=== PATIENT | male | born 1945 | race American Indian/Alaskan Native ===

== ENCOUNTER 2020-08-24 09:31 | Emergency (ER) | payer MEDICARE, SELFPAY ==
[2020-08-24] MEDS ORDERED: DIPHtheria,PERTUSSIS(ACELL),TETANUS VACCINE/PF 0.5 ML VIAL IM ONE (12:14)
--- NOTE | 2020-08-24 12:18 | Emergency Department Report ---
ED General Adult HPI - General Chief complaint: Extremity Injury, Lower Stated complaint: FOOT INJURY Time Seen by Provider: 08/24/20 12:13 Source: patient Mode of arrival: Ambulatory Limitations: No Limitations - History of Present Illness Initial comments: 74-year-old -Malag[place] male patient presents with complaints of left foot and lower leg swelling x yesterday. Patient states symptoms began after he stepped on a nail that went through his rubber boot. He is unsure of his last tetanus vaccination. He states there was severe pain initially, however states that the pain is now mild and feels more like a tightness. He denies any fever/chills/sweats or prior medical history. Blood pressure noted to be significantly elevated-patient denies any prior diagnosis of hypertension. He also denies any history of DVT/PE, cough, shortness of breath, recent long travel/surgeries, hemoptysis, or history of cancer. Severity scale (0 -10): 7 - Related Data Previous Rx's Medication Instructions Recorded Last Taken Type Cyclobenzaprine [Flexeril] 10 mg PO TID PRN #15 tablet 12/07/13 Unknown Rx Prednisone [predniSONE 5 mg (6-Day 5 mg PO .TAPER #1 tab.ds.pk 12/07/13 Unknown Rx Pack, 21 Tabs)] traMADoL [Ultram] 50 mg PO Q4HR PRN #15 tablet 12/07/13 Unknown Rx Ciprofloxacin HCl [Ciprofloxacin 750 mg PO BID 7 Days #14 tablet 08/24/20 Unknown Rx TAB] Clindamycin [Clindamycin CAP] 300 mg PO Q6H 10 Days #40 cap 08/24/20 Unknown Rx Allergies Allergy/AdvReac Type Severity Reaction Status Date / Time No Known Allergies Allergy Unverified 12/07/13 03:13 ED Review of Systems ROS: Stated complaint: FOOT INJURY Other details as noted in HPI Constitutional: denies: chills, fever, malaise, weakness Respiratory: denies: cough, shortness of breath Cardiovascular: denies: chest pain Endocrine: denies: excessive sweating Gastrointestinal: denies: abdominal pain, nausea, vomiting Skin: denies: rash, lesions, change in color ED Past Medical Hx - Past Medical History Previous Medical History?: No - Surgical History Past Surgical History?: No - Social History Smoking Status: Never Smoker Substance Use Type: None - Medications Home Medications: Home Medications Medication Instructions Recorded Confirmed Last Taken Type Cyclobenzaprine [Flexeril] 10 mg PO TID PRN #15 tablet 12/07/13 Unknown Rx Prednisone [predniSONE 5 mg (6-Day 5 mg PO .TAPER #1 tab.ds.pk 12/07/13 Unknown Rx Pack, 21 Tabs)] traMADoL [Ultram] 50 mg PO Q4HR PRN #15 tablet 12/07/13 Unknown Rx Ciprofloxacin HCl [Ciprofloxacin 750 mg PO BID 7 Days #14 tablet 08/24/20 Unknown Rx TAB] Clindamycin [Clindamycin CAP] 300 mg PO Q6H 10 Days #40 cap 08/24/20 Unknown Rx ED Physical Exam - General Limitations: No Limitations General appearance: alert, in no apparent distress - Head Head exam: Present: atraumatic, normocephalic - Eye Eye exam: Present: normal appearance. Absent: scleral icterus - Neck Neck exam: Present: normal inspection - Respiratory Respiratory exam: Present: normal lung sounds bilaterally. Absent: respiratory distress - Cardiovascular Cardiovascular Exam: Present: regular rate, normal rhythm. Absent: systolic murmur, diastolic murmur, rubs, gallop - Expanded Lower Extremity Exam Left Lower Leg exam: Present: full ROM, swelling (Pitting edema). Absent: ecchymosis, erythema Ankle exam: Present: full ROM, swelling (Pitting edema) Foot/Toe exam: Present: swelling. Absent: laceration, ecchymosis, deformity, erythema, puncture wound, foreign body Neuro vascular tendon exam: Absent: no vascular compromise, pulse deficit Gait: Positive: observed and normal - Neurological Exam Neurological exam: Present: alert, oriented X3, normal gait - Psychiatric Psychiatric exam: Present: normal affect, normal mood - Skin Skin exam: Present: warm, dry, intact, normal color. Absent: rash, cyanosis, diaphoretic, erythema ED Course Vital Signs 08/24/20 08/24/20 09:35 15:58 Temperature 98.1 F Pulse Rate 82 62 Respiratory 16 Rate Blood Pressure 188/103 188/98 [Right] O2 Sat by Pulse 98 Oximetry ED Medical Decision Making - Lab Data Result diagrams: 08/24/20 13:15 08/24/20 13:15 Lab Results 08/24/20 08/24/20 Range/Units 13:15 13:15 WBC 5.0 (4.5-11.0) K/mm3 RBC 4.11 (3.65-5.03) M/mm3 Hgb 11.3 L (11.8-15.2) gm/dl Hct 33.6 L (35.5-45.6) % MCV 82 L (84-94) fl MCH 27 L (28-32) pg MCHC 34 (32-34) % RDW 16.5 H (13.2-15.2) % Plt Count 331 (140-440) K/mm3 Lymph % (Auto) 37.5 H (13.4-35.0) % Lyman % (Auto) 11.3 H (0.0-7.3) % Eos % (Auto) 1.2 (0.0-4.3) % Baso % (Auto) 0.4 (0.0-1.8) % Lymph # (Auto) 1.9 (1.2-5.4) K/mm3 Lyman # (Auto) 0.6 (0.0-0.8) K/mm3 Eos # (Auto) 0.1 (0.0-0.4) K/mm3 Baso # (Auto) 0.0 (0.0-0.1) K/mm3 Seg Neutrophils % 49.6 (40.0-70.0) % Seg Neutrophils # 2.5 (1.8-7.7) K/mm3 Sodium 141 (137-145) mmol/L Potassium 3.9 (3.6-5.0) mmol/L Chloride 106.5 (98-107) mmol/L Carbon Dioxide 23 (22-30) mmol/L Anion Gap 15 mmol/L BUN 15 (9-20) mg/dL Creatinine 1.3 (0.8-1.3) mg/dL Estimated GFR 54 ml/min BUN/Creatinine Ratio 12 % Glucose 91 (75-100) mg/dL Calcium 9.3 (8.4-10.2) mg/dL Total Bilirubin 0.50 (0.1-1.2) mg/dL AST 28 (5-40) units/L ALT 21 (7-56) units/L Alkaline Phosphatase 141 H (35-129) units/L Total Creatine Kinase 173 H (55-170) units/L Total Protein 7.3 (6.3-8.2) g/dL Albumin 3.6 L (3.9-5) g/dL Albumin/Globulin Ratio 1.0 % - Radiology Data Radiology results: report reviewed DUPLEX DOPPLER LOWER EXTREMITY VEINS, LEFT INDICATION / CLINICAL INFORMATION: swelling and pain. TECHNIQUE: Duplex doppler imaging was performed through the veins of the left lower extremity using venous compression and other maneuvers. COMPARISON: None available. FINDINGS: LEFT COMMON FEMORAL VEIN: Negative. LEFT FEMORAL VEIN: Negative. LEFT POPLITEAL VEIN: Negative. LEFT CALF VEINS: Negative. ADDITIONAL FINDINGS: None. IMPRESSION: 1. No sonographic evidence for DVT in the left lower extremity. XR foot 3+V LT INDICATION / CLINICAL INFORMATION: plantat puncture injury, now swelling pain. COMPARISON: None available. FINDINGS: Soft tissue edema in the dorsal soft tissues. No acute fracture. No cortical lysis. No foreign body. Normal alignment. Joint spaces are preserved. No destructive osseous lesion or suspicious periosteal reaction. Impression: 1.No acute osseous abnormality. - Medical Decision Making 74-year-old -Malag[place] male patient presents with complaints of left foot and lower leg swelling x yesterday. Patient states symptoms began after he stepped on a nail that went through his rubber boot. He is unsure of his last tetanus vaccination. He states there was severe pain initially, however states that the pain is now mild and feels more like a tightness. He denies any f ever/chills/sweats or prior medical history. Blood pressure noted to be significantly elevated-patient denies any prior diagnosis of hypertension. He also denies any history of DVT/PE, cough, shortness of breath, recent long travel/surgeries, hemoptysis, or history of cancer. Moderate pitting edema noted to left leg on exam without significant erythema. Ultrasound is negative for DVT. X-rays negative for osteomyelitis or acute bony abnormality. White count is normal CBC. CK is minimally elevated. Given puncture wound, will treat for possible secondary infection with Cipro and Clindamycin. Discussed in great detail signs and symptoms that should prompt immediate return to the ED in detail with patient who verbalizes understanding. He is to follow-up with primary care in 2 days. Referral was provided for patient. Patient also to follow-up with primary care concerning his blood p ressure. Patient is otherwise well-appearing and stable for discharge home. Critical care attestation.: If time is entered above; I have spent that time in minutes in the direct care of this critically ill patient, excluding procedure time. ED Disposition Clinical Impression: Leg edema, left, Elevated blood pressure reading Puncture wound of left foot Qualifiers: Encounter type: initial encounter Qualified Code(s): S91.332A - Puncture wound without foreign body, left foot, initial encounter Disposition: - TO HOME OR SELFCARE Is pt being admited?: No Condition: Stable Instructions: Cellulitis, Adult, Puncture Wound Additional Instructions: Seek immediate emergency treatment if your symptoms are not improving within 2 days or you develop new/worsening symptoms including, but not limited fever, redness, increased swelling, or pain. Prescriptions: Ciprofloxacin HCl [Ciprofloxacin TAB] 750 mg PO BID 7 Days #14 tablet Clindamycin [Clindamycin CAP] 300 mg PO Q6H 10 Days #40 cap Referrals: EVANGELINA JJ MD [Staff Physician] - 08/26/20 (Leg recheck, Blood pressure )
--- NOTE | 2020-08-24 13:27 | Vascular Lab Report ---
DUPLEX DOPPLER LOWER EXTREMITY VEINS, LEFT INDICATION / CLINICAL INFORMATION: swelling and pain. TECHNIQUE: Duplex doppler imaging was performed through the veins of the left lower extremity using venous compr ession and other maneuvers. COMPARISON: None available. FINDINGS: LEFT COMMON FEMORAL VEIN: Negative. LEFT FEMORAL VEIN: Negative. LEFT POPLITEAL VEIN: Negative. LEFT CALF VEINS: Negative. ADDITIONAL FINDINGS: None. IMPRESSION: 1. No sonographic evidence for DVT in the left lower extremity. Signer Name: Sriram Ann MD Signed: 08/24/2020 1:22 PM Workstation Name: [id number]
--- NOTE | 2020-08-24 14:10 | XRay Report ---
XR foot 3+V LT INDICATION / CLINICAL INFORMATION: plantat puncture injury, now swelling pain. COMPARISON: None available. FINDINGS: Soft tissue edema in the dorsal soft tissues. No acute fracture. No cortical lysis. No foreign body. Normal alignment. Joint spaces are preserved. No destructive osseous lesion or suspicious periostea l reaction. Impression: 1.No acute osseous abnormality. Signer Name: Santy Masters MD Signed: 08/24/2020 2:06 PM Workstation Name: [id number]
[2020-08-24 14:23] LABS: Albumin 3.6 g/dL (3.9-5); Calcium 9.3 mg/dL (8.4-10.2)
[2020-08-24 14:33] LABS: Basophils % (Auto) 0.4 % (0.0-1.8); Eosinophils # (Auto) 0.1 K/mm3 (0.0-0.4); Eosinophils % (Auto) 1.2 % (0.0-4.3); Hematocrit 33.6 % (35.5-45.6); Hemoglobin 11.3 gm/dl (11.8-15.2); Lymphocytes # (Auto) 1.9 K/mm3 (1.2-5.4); Lymphocytes % (Auto) 37.5 % (13.4-35.0); Mean Corpuscular HGB Conc 34 % (32-34); Mean Corpuscular Volume 82 fl (84-94); Monocytes # (Auto) 0.6 K/mm3 (0.0-0.8); Monocytes % (Auto) 11.3 % (0.0-7.3); Platelet Count 331 K/mm3 (140-440); Red Blood Count 4.11 M/mm3 (3.65-5.03); Red Cell Distribution Width 16.5 % (13.2-15.2)
[2020-08-24] MEDS ORDERED: levoFLOXacin 750 MG TAB PO ONE (15:28)
[2020-08-24] MEDS ORDERED: CLINDAMYCIN 150 MG CAP PO ONE (15:28)
[2020-08-24 15:59] VITALS: BP 188/98
== END 2020-08-24 16:01 | disposition home or self-care (01) ==
LOC: ED 09:31
DX: S91.332A Puncture wound without foreign body, left foot, initial encounter (principal); R03.0 Elevated blood-pressure reading, without diagnosis of hypertension; R60.0 Localized edema; Z79.899 Other long term (current) drug therapy; W22.8XXA Striking against or struck by other objects, initial encounter; Y93.89 Activity, other specified; Y92.89 Other specified places as the place of occurrence of the external cause; Y99.8 Other external cause status
CPT/HCPCS: 36415; 80053; 82550; 85025; 90471; 90715

== ENCOUNTER 2020-08-30 12:45 | Emergency (ER) | payer SELFPAY ==
[2020-08-30 13:22] VITALS: BP 179/101
--- NOTE | 2020-08-30 14:45 | Emergency Department Report ---
ED General Adult HPI - General Chief complaint: Extremity Problem,Nontraumatic Stated complaint: LFT LEG SWELLING/PAIN PUI?: No Time Seen by Provider: 08/30/20 14:39 Source: patient Mode of arrival: Ambulatory Limitations: No Limitations - History of Present Illness Initial comments: 74-year-old -Malagasy male status post puncture wound to the bottom of the foot last week stepping on a nail was initially seen emergency department with a myriad of testing and negative x-ray. Complains of having 6 continue swelling that has not yet worsen or become painful but wanted to get evaluated due to it not improving after taking the antibiotics as they were prescribed. He reports no cellulitis, no fever, chills, sweats reports note no nausea, no vomiting. States that he feels good overall but just came in because he was told if it was still swollen to get rechecked -: Gradual Radiation: non-radiation Quality: dull Improves with: none Worsens with: none Treatments Prior to Arrival: none - Related Data Previous Rx's Medication Instructions Recorded Last Taken Type Cyclobenzaprine [Flexeril] 10 mg PO TID PRN #15 tablet 12/07/13 Unknown Rx Prednisone [predniSONE 5 mg (6-Day 5 mg PO .TAPER #1 tab.ds.pk 12/07/13 Unknown Rx Pack, 21 Tabs)] traMADoL [Ultram] 50 mg PO Q4HR PRN #15 tablet 12/07/13 Unknown Rx Ciprofloxacin HCl [Ciprofloxacin 750 mg PO BID 7 Days #14 tablet 08/24/20 Unknown Rx TAB] Clindamycin [Clindamycin CAP] 300 mg PO Q6H 10 Days #40 cap 08/24/20 Unknown Rx Compress.stocking,Knee,Reg,Med 1 each MC DAILY #1 each 08/30/20 Unknown Rx [Jobst Anti-Embolism Stocking] Ketorolac [Toradol] 10 mg PO Q12HR PRN #10 tablet 08/30/20 Unknown Rx Allergies Allergy/AdvReac Type Severity Reaction Status Date / Time No Known Allergies Allergy Unverified 12/07/13 03:13 ED Review of Systems ROS: Stated complaint: LFT LEG SWELLING/PAIN Other details as noted in HPI Comment: All other systems reviewed and negative ED Past Medical Hx - Past Medical History Previous Medical History?: No - Surgical History Past Surgical History?: No - Social History Smoking Status: Never Smoker Substance Use Type: None - Medications Home Medications: Home Medications Medication Instructions Recorded Confirmed Last Taken Type Cyclobenzaprine [Flexeril] 10 mg PO TID PRN #15 tablet 12/07/13 Unknown Rx Prednisone [predniSONE 5 mg (6-Day 5 mg PO .TAPER #1 tab.ds.pk 12/07/13 Unknown Rx Pack, 21 Tabs)] traMADoL [Ultram] 50 mg PO Q4HR PRN #15 tablet 12/07/13 Unknown Rx Ciprofloxacin HCl [Ciprofloxacin 750 mg PO BID 7 Days #14 tablet 08/24/20 Unknown Rx TAB] Clindamycin [Clindamycin CAP] 300 mg PO Q6H 10 Days #40 cap 08/24/20 Unknown Rx Compress.stocking,Knee,Reg,Med 1 each MC DAILY #1 each 08/30/20 Unknown Rx [Jobst Anti-Embolism Stocking] Ketorolac [Toradol] 10 mg PO Q12HR PRN #10 tablet 08/30/20 Unknown Rx ED Physical Exam - General Limitations: No Limitations General appearance: alert, in no apparent distress - Head Head exam: Present: atraumatic, normocephalic - Eye Eye exam: Present: normal appearance, PERRL, EOMI Pupils: Present: normal accommodation - ENT ENT exam: Present: normal exam, normal orophraynx, mucous membranes moist, TM's normal bilaterally - Neck Neck exam: Present: normal inspection, full ROM - Respiratory Respiratory exam: Present: normal lung sounds bilaterally. Absent: respiratory distress - Cardiovascular Cardiovascular Exam: Present: regular rate, normal rhythm. Absent: systolic murmur, diastolic murmur, rubs, gallop - GI/Abdominal GI/Abdominal exam: Present: soft, normal bowel sounds - Rectal Rectal exam: Present: deferred - Extremities Exam Extremities exam: Present: normal inspection, normal capillary refill - Back Exam Back exam: Present: normal inspection. Absent: CVA tenderness (R), CVA tenderness (L) - Neurological Exam Neurological exam: Present: alert, oriented X3, CN II-XII intact - Psychiatric Psychiatric exam: Present: normal affect, normal mood - Skin Skin exam: Present: warm, dry, intact, normal color. Absent: rash ED Course Vital Signs 08/30/20 13:21 Temperature 98.1 F Pulse Rate 72 Respiratory 16 Rate Blood Pressure 179/101 [Right] O2 Sat by Pulse 99 Oximetry Critical care attestation.: If time is entered above; I have spent that time in minutes in the direct care of this critically ill patient, excluding procedure time. ED Disposition Clinical Impression: Leg edema, left Disposition: DC-01 TO HOME OR SELFCARE Is pt being admited?: No Does the pt Need Aspirin: No Condition: Stable Instructions: Edema, Peripheral Edema Prescriptions: Compress.stocking,Knee,Reg,Med [Jobst Anti-Embolism Stocking] 1 each MC DAILY #1 each Ketorolac [Toradol] 10 mg PO Q12HR PRN #10 tablet PRN Reason: Pain Referrals: EVANGELINA JJ MD [Staff Physician] - 3-5 Days
== END 2020-08-30 15:28 | disposition home or self-care (01) ==
LOC: ED 12:45
DX: R60.0 Localized edema (principal)
CPT/HCPCS: 99281

== ENCOUNTER 2020-09-15 21:58 | Inpatient (IN) | payer MEDICARE ==
--- NOTE | 2020-09-15 22:28 | Event Note ---
ED Screening Note ED Screening Note: 20 pound weight gain in just couple weeks with bilateral pitting edema This initial assessment/diagnostic orders/clinical plan/treatment(s) is/are subject to change based on patients health status, clinical progression and re- assessment by fellow clinical providers in the ED. Further treatment and workup at subsequent clinical providers discretion. Patient/guardian urged not to elope from the ED as their condition may be serious if not clinically assessed and managed. Initial orders include: ro cardiac/liver dz
[2020-09-15 23:02] LABS: Basophils # (Auto) 0.1 K/mm3 (0.0-0.1); Basophils % (Auto) 0.9 % (0.0-1.8); Eosinophils # (Auto) 0.2 K/mm3 (0.0-0.4); Eosinophils % (Auto) 3.9 % (0.0-4.3); Hematocrit 30.1 % (35.5-45.6); Lymphocytes # (Auto) 1.5 K/mm3 (1.2-5.4); Lymphocytes % (Auto) 23.7 % (13.4-35.0); Mean Corpuscular HGB Conc 33 % (32-34); Mean Corpuscular Volume 81 fl (84-94); Monocytes # (Auto) 0.7 K/mm3 (0.0-0.8); Monocytes % (Auto) 11.9 % (0.0-7.3); Platelet Count 270 K/mm3 (140-440); Red Blood Count 3.72 M/mm3 (3.65-5.03); Red Cell Distribution Width 16.6 % (13.2-15.2)
[2020-09-15 23:23] LABS: Albumin 3.7 g/dL (3.9-5); Calcium 9.3 mg/dL (8.4-10.2)
--- NOTE | 2020-09-15 23:43 | XRay Report ---
CHEST 2 VIEWS INDICATION: sob. COMPARISON: None FINDINGS: SUPPORT DEVICES: None. HEART: Within normal limits. LUNGS/PLEURA: There is a 2.2 cm nodular density in the left mid lung which is poorly seen on the late ral view. There is also hazy airspace disease in the left midlung. A few tiny scattered calcified gra nulomata are seen throughout the lungs. ADDITIONAL FINDINGS: None. IMPRESSION: 1. Pulmonary findings as above. Correlate with any prior outside imaging and/or consider follow-up no nemergent CT chest for further evaluation. Signer Name: Eduard Christopher MD Signed: 09/15/2020 11:38 PM Workstation Name: [id number]
--- NOTE | 2020-09-16 01:26 | Emergency Department Report ---
HPI - General Chief Complaint: Extremity Injury, Lower Time Seen by Provider: 09/16/20 00:03 - HPI HPI: This is a 74-year-old male who presents to the emergency department with complaint of bilateral lower extremity swelling and pain. The patient was cliff ramirez seen here on 08/24/2020 with a complaint of some left foot pain and mild left lower extremity swelling after stepping on a nail that went through his rubber boot. The patient was given a tetanus vaccination, placed on antibiotics, and discharged home. The patient returned on 08/30/2020 with complaint of continued, if not worsening, pain and swelling in the left lower extremity. Patient was once again evaluated, treated, and discharged home. The patient returns to the emergency department this evening as he now has right lower extremity pain and swelling to go along with the left leg, which has not improved. He denies any skin color change, rash, lesion. He denies any chest pain, shortness of breath, orthopnea, fever. The patient has a primary care physician but is unable to get an appointment until 10/05/2020. The patient presents with very elevated blood pressure but denies any history of diagnosed hypertension and is not on any antihypertensive medications. The patient also had elevated blood pressure during his previous visits here. ED Past Medical Hx - Past Medical History Previous Medical History?: No - Social History Smoking Status: Never Smoker Substance Use Type: None - Medications Home Medications: Home Medications Medication Instructions Recorded Confirmed Last Taken Type Cyclobenzaprine [Flexeril] 10 mg PO TID PRN #15 tablet 12/07/13 09/16/20 Unknown Rx Prednisone [predniSONE 5 mg (6-Day 5 mg PO .TAPER #1 tab.ds.pk 12/07/13 09/16/20 Unknown Rx Pack, 21 Tabs)] traMADoL [Ultram] 50 mg PO Q4HR PRN #15 tablet 12/07/13 09/16/20 Unknown Rx Ciprofloxacin HCl [Ciprofloxacin 750 mg PO BID 7 Days #14 tablet 08/24/20 09/16/20 Unknown Rx TAB] Clindamycin [Clindamycin CAP] 300 mg PO Q6H 10 Days #40 cap 08/24/20 09/16/20 Unknown Rx Compress.stocking,Knee,Reg,Med 1 each MC DAILY #1 each 08/30/20 09/16/20 Unknown Rx [Jobst Anti-Embolism Stocking] Ketorolac [Toradol] 10 mg PO Q12HR PRN #10 tablet 08/30/20 09/16/20 Unknown Rx ED Review of Systems ROS: Stated complaint: LEG SWELLING Other details as noted in HPI Comment: All other systems reviewed and negative Constitutional: denies: chills, fever Eyes: denies: eye pain, vision change ENT: denies: ear pain, throat pain Respiratory: denies: cough, shortness of breath Cardiovascular: edema. denies: chest pain Gastrointestinal: denies: abdominal pain, vomiting Genitourinary: denies: dysuria, discharge Musculoskeletal: joint swelling, arthralgia, myalgia Skin: denies: rash, lesions Neurological: denies: numbness, paresthesias Physical Exam - Physical Exam Vital Signs: Vital Signs 09/15/20 09/15/20 22:11 22:26 Temperature 98.2 F Pulse Rate 84 Respiratory 18 Rate Blood Pressure 219/103 Blood Pressure 212/96 [Left] O2 Sat by Pulse 100 Oximetry Physical Exam: GENERAL: The patient is well-developed well-nourished. HENT: Normocephalic. Atraumatic. Patient has moist mucous membranes. EYES: Extraocular motions are intact. NECK: Supple. Trachea is midline. CHEST/LUNGS: Clear to auscultation. There is no respiratory distress noted. HEART/CARDIOVASCULAR: Regular. There is no tachycardia. There is no murmur. ABDOMEN: Abdomen is soft, nontender. Patient has normal bowel sounds. SKIN: There is mild to moderate nonpitting swelling of the bilateral feet. There is 2+ pitting edema to the bilateral lower extremities from the distal thighs down through the ankles. NEURO: The patient is awake, alert, and oriented. The patient is cooperative. The patient has no focal neurologic deficits. Normal speech. MUSCULOSKELETAL: There is some tenderness to palpation to the distal bilateral lower extremities. There is no limitation range of motion. Capillary refill less than 2 seconds to the bilateral lower extremities. ED Course Vital Signs 09/15/20 09/15/20 22:11 22:26 Temperature 98.2 F Pulse Rate 84 Respiratory 18 Rate Blood Pressure 219/103 Blood Pressure 212/96 [Left] O2 Sat by Pulse 100 Oximetry ED Medical Decision Making - Lab Data Result diagrams: 09/17/20 19:36 09/19/20 09:29 - EKG Data -: EKG Interpreted by Mn EKG shows normal: sinus rhythm, axis, intervals, QRS complexes, ST-T waves Rate: normal - EKG Data When compared to previous EKG there are: previous EKG unavailable Interpretation: normal EKG - Radiology Data Radiology results: report reviewed CHEST 2 VIEWS INDICATION: sob. COMPARISON: None FINDINGS: SUPPORT DEVICES: None. HEART: Within normal limits. LUNGS/PLEURA: There is a 2.2 cm nodular density in the left mid lung which is poorly seen on the lateral view. There is also hazy airspace disease in the left midlung. A few tiny scattered calcified granulomata are seen throughout the lungs. ADDITIONAL FINDINGS: None. IMPRESSION: 1. Pulmonary findings as above. Correlate with any prior outside imaging and/or consider follow-up nonemergent CT chest for further evaluation. DUPLEX DOPPLER LOWER EXTREMITY VEINS, BILATERAL INDICATION: Bilateral LE swelling. TECHNIQUE: Duplex doppler imaging was performed through the veins of both lower extremities using venous compression and other maneuvers. COMPARISON: No relevant prior imaging study available. FINDINGS: Right Common femoral vein: Negative. Right Superficial femoral vein: Negative. Right Popliteal vein: Negative. Right Calf veins: Negative. Left Common femoral vein: Negative. Left Superficial femoral vein: Negative. Left Popliteal vein: Negative. Left Calf veins: Negative. Additional findings: None.. IMPRESSION: 1. No sonographic evidence for DVT in either lower extremity. ULTRASOUND RENAL INDICATION / CLINICAL INFORMATION: Acute renal failure. COMPARISON: None available. FINDINGS: RIGHT KIDNEY: Length = 10.8 cm. [normal > 9 cm] - Parenchymal Thickness = 0.9 cm. [normal > 1.5 cm] - Echogenicity: I ncreased - Hydronephrosis: Mild - Cyst or mass: No significant abnormality. - Stones: None seen. LEFT KIDNEY: Length = 10.4 cm. [normal > 9 cm] - Parenchymal Thickness = 1.0 cm. [normal > 1.5 cm] - Echogenicity: Increased - Hydronephrosis: Mild - Cyst or mass: No significant abnormality. - Stones: None seen. URINARY BLADDER: No significant abnormality. FREE FLUID: None. ADDITIONAL FINDINGS: None. IMPRESSION: 1. Echogenic kidneys with mild bilateral hydronephrosis. 2. Bilateral renal cortical thinning. - Medical Decision Making This patient presents to the emergency department with bilateral lower extremity swelling and pain. Patient does have pitting edema to the bilateral lower extremities but there is no erythema, rash, lesions. Chest x-ray was read by radiology as showing a small nodular density in the left midlung that is only seen on the AP view and there is possibly hazy airspace disease in the left midlung. The patient's labs have been mostly unremarkable except for what appears to be acute renal failure. The patient previously had a creatinine of 1.3 and a GFR of 54 in the middle of last month. Today he has a creatinine greater than 5 and a GFR of 14. No electrolyte abnormalities. Patient presents with extremely elevated blood pressure. While he denies any history of this, he has had significant hypertension during his last 2 visits prior to today. Patient was given some IV labetalol. I have discussed this case with the admitting hospitalist, Dr. Fisher, who has accepted the patient to his service to go to the telemetry floor for evaluation of his hypertension, renal failure, and nephrology consultation. The patient will have a bilateral lower extremity venous Doppler ultrasound, as well as a renal ultrasound. If positive for DVT, the patient will need to be started on anticoagulation. If there is signs of urinary retention and/or hydronephrosis, then the patient may need a Butt catheter placed. Critical Care Time: Yes Critical care time in (mins) excluding proc time.: 35 Critical care attestation.: If time is entered above; I have spent that time in minutes in the direct care of this critically ill patient, excluding procedure time. Critical care time was spent on this patient in doing his initial evaluation, multiple ree valuations, ordering and interpretation of labs and imaging, treatment of his hypertensive urgency, discussion with the hospitalist service, multiple discussions with the patient regarding his acute renal failure. Critical Care Time: 35 minutes ED Disposition Clinical Impression: Hypertensive urgency, Swelling of both lower extremities Acute renal failure Qualifiers: Qualified Code(s): N17.9 - Acute kidney failure, unspecified Disposition: OP ADMIT IP TO THIS HOSP Is pt being admited?: Yes Condition: Fair Time of Disposition: 01:46
[2020-09-16 02:01] LABS: Bacteria,Urine 1+ /HPF (Negative); Bilirubin,Urine NEG (Negative); Blood,Urine MOD (Negative); Color,Urine Straw (Yellow); Mucus,Urine FEW /HPF; Protein,Urine <15 mg/dL mg/dL (Negative); Urobilinogen,Urine < 2.0 mg/dL (<2.0)
--- NOTE | 2020-09-16 02:26 | History and Physical Report ---
History of Present Illness Date of examination: 09/16/20 Date of admission: 09/16/20 01:46 Chief complaint: bilateral Leg edema hypertensive Crisis History of present illness: This is a 74-year-old male seen at bedside in ED. He presents with bilateral leg pitting edema and reports difficulty with ambulation due to swelling of the leg, worsen on left leg than right leg. Per ed/medical record-The patient was initially seen here on 08/24/2020 with a complaint of some left foot pain and mild left lower extremity swelling after stepping on a nail that went through his rubber boot. The patient was given a tetanus vaccination, placed on antibiotics, and discharged home. The patient returned on 08/30/2020 with complaint of continued, if not worsening, pain and swelling in the left lower extremity. Patient was once again evaluated, treated, and discharged home. on assessment, patient denies chest pain, shortness of breath, skin rash and skin lesion. He also denies tobacco , alcohol and illicit drug use. Patient blood pressure is elevated, he said he is not on any blood pressure medicine and he did not know he has hypertension. Patient renal function reduced and he denies history of kidney disease. ED Work Up Shows: WBC 6.3, hemoglobin 10.0, C02 19, Cr 5.0 Chest x-ra shows- There is a 2.2 cm nodular density in the left mid lung which is poorly seen on the lateral view. There is also hazy airspace disease in the left midlung. A few tiny scattered calcified granulomata are seen throughout the lungs Past History Past Medical History: hypertension, renal failure, other (acute kidney injury) Past Surgical History: No surgical history Social history: no significant social history Family history: no significant family history Medications and Allergies Allergies Allergy/AdvReac Type Severity Reaction Status Date / Time No Known Allergies Allergy Unverified 12/07/13 03:13 Home Medications Medication Instructions Recorded Confirmed Last Taken Type Cyclobenzaprine [Flexeril] 10 mg PO TID PRN #15 tablet 12/07/13 Unknown Rx Prednisone [predniSONE 5 mg (6-Day 5 mg PO .TAPER #1 tab.ds.pk 12/07/13 Unknown Rx Pack, 21 Tabs)] traMADoL [Ultram] 50 mg PO Q4HR PRN #15 tablet 12/07/13 Unknown Rx Ciprofloxacin HCl [Ciprofloxacin 750 mg PO BID 7 Days #14 tablet 08/24/20 Unknown Rx TAB] Clindamycin [Clindamycin CAP] 300 mg PO Q6H 10 Days #40 cap 08/24/20 Unknown Rx Compress.stocking,Knee,Reg,Med 1 each MC DAILY #1 each 08/30/20 Unknown Rx [Jobst Anti-Embolism Stocking] Ketorolac [Toradol] 10 mg PO Q12HR PRN #10 tablet 08/30/20 Unknown Rx Review of Systems Constitutional: no weight loss, no lethargy Ears, nose, mouth and throat: no ear discharge, no epistaxis Cardiovascular: edema (bilateral leg pitting edema), high blood pressure, no palpitations Respiratory: no hemoptysis Gastrointestinal: no diarrhea Genitourinary Male: no discharge Musculoskeletal: other (bilateral leg pain on ambulation) Integumentary: no lesions, no depigmentation Neurological: no paralysis Psychiatric: no disorientation, no hallucinations Endocrine: no polyphagia, no deepening of the voice Allergic/Immunologic: no anaphylaxis Exam - Constitutional Vitals: Temp Pulse Resp BP Pulse Ox 98.2 F 72 18 219/99 100 09/15/20 22:11 09/16/20 01:43 09/15/20 22:11 09/16/20 01:43 09/15/20 22:11 General appearance: Present: other (Frail appearing elderly patient. Has bilateral pitting edema) - EENT Eyes: Present: PERRL ENT: hearing intact, clear oral mucosa - Neck Neck: Present: supple, normal ROM - Respiratory Respiratory effort: normal Respiratory: bilateral: CTA - Cardiovascular Heart rate: 72 Heart Sounds: Present: S1 & S2. Absent: rub, click - Extremities Extremities: pulses symmetrical, No edema, abnormal (bilateral leg edema with pain on ambulation) Extremity abnormal: edema Peripheral Pulses: within normal limits - Abdominal General gastrointestinal: Present: soft, non-tender, non-distended, normal bowel sounds Male genitourinary: Present: normal - Integumentary Integumentary: Present: clear, warm, dry - Musculoskeletal Musculoskeletal: other (bilateral leg edema and tenderness) - Psychiatric Psychiatric: appropriate mood/affect, intact judgment & insight - Neurologic Neurologic: CNII-XII intact, moves all extremities - Allied Health Allied health notes reviewed: nursing HEART Score - HEART Score Troponin: Troponin T < 0.010 ng/mL (0.00-0.029) 09/15/20 22:41 Results - Labs CBC & Chem 7: 09/15/20 22:41 09/15/20 22:41 Labs: Abnormal lab results 09/15/20 09/15/20 Range/Units 22:41 22:41 Hgb 10.0 L (11.8-15.2) gm/dl Hct 30.1 L (35.5-45.6) % MCV 81 L (84-94) fl MCH 27 L (28-32) pg RDW 16.6 H (13.2-15.2) % Ida % (Auto) 11.9 H (0.0-7.3) % Carbon Dioxide 19 L (22-30) mmol/L BUN 40 H (9-20) mg/dL Creatinine 5.0 H (0.8-1.3) mg/dL Albumin 3.7 L (3.9-5) g/dL Lipase 10 L (13-60) units/L Assessment and Plan - Patient Problems (1) Acute renal failure Current Visit: Yes Status: Acute Qualifiers: Qualified Code(s): N17.9 - Acute kidney failure, unspecified Plan to address problem: unknown history of kidney disease monitor Kidney function avoid nephrotoxic drug Renal US-f/u with result [employer] consulted-f/u with result (2) Hypertensive urgency Current Visit: Yes Status: Acute Plan to address problem: Patient not on home bp medicine Monitor blood pressure start amlodipine daily PRN labetolol q 6hrs Check Troponin and ECHO-f/u with result Discussed medication compliance (3) Swelling of both lower extremities Current Visit: Yes Status: Acute Plan to address problem: ? cause CHF/Renal failure Lasix 40mg times 1 ECHO-f/u with result Bilateral leg US (4) DVT prophylaxis Current Visit: Yes Status: Acute Plan to address problem: sqh
[2020-09-16] MEDS ORDERED: MAGNESIUM HYDROXIDE (MOM) ORAL LIQD UDC PO PRN (02:51)
[2020-09-16] MEDS ORDERED: METOCLOPRAMIDE 10 MG/2 ML INJ IV PRN (02:51)
[2020-09-16] MEDS ORDERED: ONDANSETRON 4 MG/2 ML INJ IV PRN (02:51)
[2020-09-16] MEDS ORDERED: ALUM-MAG HYDROXIDE-SIMETHICONE 200-200-20MG/5ML ORAL LIQD 30 ML PO PRN (02:51)
[2020-09-16] MEDS ORDERED: ACETAMINOPHEN 325 MG TAB PO PRN (02:51)
[2020-09-16] MEDS ORDERED: traMADol 50 MG TAB PO PRN (02:57)
[2020-09-16] MEDS ORDERED: LACTULOSE 20 GM/30 ML ORAL LIQD PO PRN (02:57)
[2020-09-16] MEDS ORDERED: traZODone 50 MG TAB PO PRN (02:57)
[2020-09-16] MEDS ORDERED: FUROSEMIDE 40 MG/4 ML INJ IV ONE (03:06)
[2020-09-16] MEDS ORDERED: FUROSEMIDE 40 MG/4 ML INJ ONE (04:50)
[2020-09-16] MEDS ORDERED: HEPARIN 5,000 UNIT/1 ML VIAL ONE (04:50)
[2020-09-16] MEDS: HEPARIN 5,000 UNIT/1 ML VIAL SUB-Q SCH ×3 (04:54→22:34)
--- NOTE | 2020-09-16 04:56 | Vascular Lab Report ---
DUPLEX DOPPLER LOWER EXTREMITY VEINS, BILATERAL INDICATION: Bilateral LE swelling. TECHNIQUE: Duplex doppler imaging was performed through the veins of both lower extremities using venous molly holly and other maneuvers. COMPARISON: No relevant prior imaging study available. FINDINGS: Right Common femoral vein: Negative. Right Superficial femoral vein: Negative. Right Popliteal vein: Negative. Right Calf veins: Negative. Left Common femoral vein: Negative. Left Superficial femoral vein: Negative. Left Popliteal vein: Negative. Left Calf veins: Negative. Additional findings: None.. IMPRESSION: 1. No sonographic evidence for DVT in either lower extremity. Signer Name: Eduard Christopher MD Signed: 09/16/2020 4:51 AM Workstation Name: [id number]
--- NOTE | 2020-09-16 04:57 | Ultrasound Report ---
ULTRASOUND RENAL INDICATION / CLINICAL INFORMATION: Acute renal failure. COMPARISON: None available. FINDINGS: RIGHT KIDNEY: Length = 10.8 cm. [normal > 9 cm] - Parenchymal Thickness = 0.9 cm. [normal > 1.5 cm] - Echogenicity: Increased - Hydronephrosis: Mild - Cyst or mass: No significant abnormality. - Stones: None seen. LEFT KIDNEY: Length = 10.4 cm. [normal > 9 cm] - Parenchymal Thickness = 1.0 cm. [normal > 1.5 cm] - Echogenicity: Increased - Hydronephrosis: Mild - Cyst or mass: No significant abnormality. - Stones: None seen. URINARY BLADDER: No significant abnormality. FREE FLUID: None. ADDITIONAL FINDINGS: None. IMPRESSION: 1. Echogenic kidneys with mild bilateral hydronephrosis. 2. Bilateral renal cortical thinning. Signer Name: Eduard Christopher MD Signed: 09/16/2020 4:52 AM Workstation Name: [email or web address]
[2020-09-16 06:25] LABS: Alanine Aminotransferase 22 units/L (7-56); Albumin 3.5 g/dL (3.9-5)
[2020-09-16 06:29] LABS: Bilirubin,Direct < 0.2 mg/dL (0-0.2)
[2020-09-16 06:32] LABS: Blood Urea Nitrogen 42 mg/dL (9-20); Calcium 9.3 mg/dL (8.4-10.2); Chol/HDL Ratio 2.48 %; HDL Cholesterol 56 mg/dL (40-59); Hemolysis Index 8; LDL Cholesterol,Direct 72 mg/dL (50-130)
[2020-09-16 06:33] LABS: BUN/Creatinine Ratio 8
[2020-09-16] MEDS: amLODIPine 10 MG TAB PO SCH (10:33)
--- NOTE | 2020-09-16 12:47 | Consultation ---
History of Present Illness - Reason for Consult Consult date: 09/16/20 acute renal failure Requesting physician: MARY XIAO - History of Present Illness This is a 74 yo M with past medical history of hypertension, who initially presented with b/l LE swelling. Pt presented to ER on 08/24 with similar complaints after stepping on a nail that went through his rubber boot. The patient was given a tetanus vaccination, placed on antibiotics, and discharged home. In ER patient was found to be hypertensive with BP as high as 215/108mmHg was treated with IV labetalol and IV lasix. Labs showed significant elevation of BUN/Cr at 42/5.5mg/dl (Cr was 1.3mg/dl on 08/24/20), for which renal consult is requested. pt denies fever, chills, n/v/d, abd pain, SOB, CP, palpitations, however reports suprapubic pain, decreased urinary stream frequent nocturia. denies h/o previous renal disease, no recent NSAIDs use or IV contrast exposure reported. Past History Past Medical History: hypertension, renal failure, other (acute kidney injury) Past Surgical History: No surgical history Social history: no significant social history Family history: no significant family history Medications and Allergies Allergies Allergy/AdvReac Type Severity Reaction Status Date / Time No Known Allergies Allergy Unverified 12/07/13 03:13 Home Medications Medication Instructions Recorded Confirmed Last Taken Type Cyclobenzaprine [Flexeril] 10 mg PO TID PRN #15 tablet 12/07/13 09/16/20 Unknown Rx Prednisone [predniSONE 5 mg (6-Day 5 mg PO .TAPER #1 tab.ds.pk 12/07/13 09/16/20 Unknown Rx Pack, 21 Tabs)] traMADoL [Ultram] 50 mg PO Q4HR PRN #15 tablet 12/07/13 09/16/20 Unknown Rx Ciprofloxacin HCl [Ciprofloxacin 750 mg PO BID 7 Days #14 tablet 08/24/2001/01 Unknown Rx TAB] Clindamycin [Clindamycin CAP] 300 mg PO Q6H 10 Days #40 cap 08/24/20 09/16/20 Unknown Rx Compress.stocking,Knee,Reg,Med 1 each MC DAILY #1 each 08/30/20 09/16/20 Unknown Rx [Jobst Anti-Embolism Stocking] Ketorolac [Toradol] 10 mg PO Q12HR PRN #10 tablet 08/30/20 09/16/20 Unknown Rx Active Meds: Active Medications Acetaminophen (Tylenol) 650 mg PO Q4H PRN PRN Reason: Pain MILD(1-3)/Fever >100.5/REYES Al Hydrox/Mg Hydrox/Simethicone (Alum-Mag Hydrox-Simeth [phone]/5ml) 30 ml PO Q4H PRN PRN Reason: Indigestion Amlodipine Besylate (Amlodipine) 10 mg PO QDAY [facility] Last Admin: 09/16/20 10:33 Dose: 10 mg Documented by: Heparin Sodium (Porcine) (Heparin) 5,000 unit SUB-Q Q12HR [facility] Last Admin: 09/16/20 10:34 Dose: 5,000 unit Documented by: Labetalol HCl (Labetalol) 10 mg IV Q6H PRN PRN Reason: Hypertension Lactulose (Cephulac) 20 gm PO QHS PRN PRN Reason: Constipation Magnesium Hydroxide (Milk Of Magnesia) 30 ml PO Q4H PRN PRN Reason: Constipation Metoclopramide HCl (Reglan) 5 mg IV Q6H PRN PRN Reason: Nausea And Vomiting Ondansetron HCl (Zofran) 4 mg IV Q8H PRN PRN Reason: Nausea And Vomiting Sodium Chloride (Sodium Chloride Flush Syringe 10 Ml) 10 ml IV BID [facility] Last Admin: 09/16/20 10:34 Dose: 10 ml Documented by: Sodium Chloride (Sodium Chloride Flush Syringe 10 Ml) 10 ml IV PRN PRN PRN Reason: LINE FLUSH Tramadol HCl (Ultram) 50 mg PO Q6H PRN PRN Reason: Pain, Moderate (4-6) Trazodone HCl (Desyrel) 50 mg PO QHS PRN PRN Reason: Insomnia Review of Systems All systems: negative Constitutional: weakness Cardiovascular: leg edema Gastrointestinal: abdominal pain Exam - Vital Signs Vital signs: Vital Signs Temp Pulse Resp BP Pulse Ox 98.2 F 84 18 219/103 100 09/15/20 22:11 09/15/20 22:11 09/15/20 22:11 09/15/20 22:11 09/15/20 22:11 - General Appearance General appearance: well-developed, well-nourished EENT: ATNC, PERRL, mucous membranes moist Neck: Present: neck supple Respiratory: Clear to Ascultation Heart: regular, S1S2 Gastrointestinal: Present: normoactive bowel sounds, distended (suprapubic distension ) Integumentary: no rash, other (+ b/l LE edema ) Neurologic: no focal deficit, alert and oriented x3, strength 5/5, CN 3-12 intact Psychiatric: mood/affect appropriate, cooperative Results - Lab Results 09/15/20 22:41 09/16/20 05:15 Most recent lab results Calcium 9.3 mg/dL (8.4-10.2) 09/16/20 05:15 Assessment and Plan - Patient Problems (1) Acute renal failure Current Visit: Yes Status: Acute Qualifiers: Qualified Code(s): N17.9 - Acute kidney failure, unspecified Plan to address problem: Suspect LIANNA secondary to urinary retention/b/l hydronephrosis as evidenced by renal US. suspect underlying enlarged prostate. Recommend bansal placement. D/w RN. Renal US also showed b/l echogenicity along with b/l mild hydro, hypertensive emergency may contribute to LIANNA. Strict I/Os, Avoid nephrotoxins, NSAIDs, IV contrast. Will monitor lytes/renal parameters closely and make further recommendations (2) Hydronephrosis due to obstruction of bladder Current Visit: Yes Status: Acute Plan to address problem: ordered bansal placement, d/w RN (3) Hypertensive urgency Current Visit: Yes Status: Acute Plan to address problem: BP control with IV labetaolol, to target BP 160/90s mmHg within 24hrs
--- NOTE | 2020-09-16 15:11 | Event Note ---
Date: 09/16/20 Signout received from Patient here with bilateral leg swelling and discomfort for 2 weeks. Now found to have LIANNA with Cr 5. Nephrology has been consulted. US renal shows bilateral hydronephrosis. Butt not able to be placed by RN. Urology consulted via text.
[2020-09-17 09:08] LABS: Calcium 8.8 mg/dL (8.4-10.2)
[2020-09-17] MEDS: carvediloL 6.25 MG TAB PO SCH ×2 (09:24→22:49)
[2020-09-17] MEDS: hydrALAZINE 25 MG TAB PO SCH ×3 (09:24→22:49)
[2020-09-17] MEDS: amLODIPine 10 MG TAB PO SCH (09:24)
[2020-09-17] MEDS: HEPARIN 5,000 UNIT/1 ML VIAL SUB-Q SCH (09:25)
--- NOTE | 2020-09-17 09:33 | Cat Scan Report ---
CT abdomen pelvis wo con INDICATION / CLINICAL INFORMATION: Evaluate for bladder outlet obstruction. Abdominal pain TECHNIQUE: Routine CT abdomen and pelvis without IV contrast All CT scans at this location are performed using C T dose reduction for ALARA by means of automated exposure control. COMPARISON: None available. FINDINGS: Abdomen and pelvis: Review of the lower chest demonstrates tiny bilateral pleural effusions and patch y consolidation within the posterior aspect of the right lower lung. There is diffuse anasarca. There is severe bilateral hydroureteronephrosis. The urinary bladder is se verely fluid distended urinary bladder wall is mildly thickened diffusely. The prostate appears at le ast mildly enlarged and heterogeneous. In addition there is abnormal appearance of the distal rectum which appears thickened and irregular. The liver contains multiple small hypodensities too small to accurately characterize. The spleen, esteves creas and adrenal glands are grossly unremarkable within limits of noncontrast technique. Large stool burden identified throughout the colon. The appendix is not well visualized. No evidence of high-gra de small bowel obstruction. There is bilateral inguinal adenopathy. There is extensive retroperitoneal adenopathy throughout the abdomen and pelvis. Review of bone windows demonstrates diffuse osseous metastatic sclerotic tight abnormality throughout the spine, ribs and pelvis. IMPRESSION: 1. Severe overdistention of the urinary bladder with evidence of severe bilateral hydroureteronephros is likely secondary to urinary bladder outlet obstruction either from prostate pathology or possibly underlying rectal pathology given the degree of thickening/irregularity within the low pelvis. Underl lainey posttreatment pelvic radiation changes would also give a similar appearance and is not excluded. 2. 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 3. Severe anasarca. 4. Severe bilateral inguinal adenopathy. There is also evidence of severe retroperitoneal adenopathy. Signer Name: Cruz Lundberg MD Signed: 09/17/2020 9:28 AM Workstation Name: [email or web address]
--- NOTE | 2020-09-17 13:09 | Progress Note ---
Assessment and Plan Assessment and plan: 74-year-old male who presented to the emergency room with chief complaint of bilateral lower extremity swelling and difficulty with ambulation. He reports symptoms started about 2 weeks ago. He denies any shortness of breath, chest pain. He he denies any urinary retention. Here in the ER, patient was found to have elevated creatinine-5.0 and admitted for evaluation. He also found to have elevated blood pressure. He denies any history of kidney disease. Nephrology was consulted in the ER. Patient had an ultrasound of the kidneys that showed bilateral hydronephrosis. Nephrology advised Butt placement. 09/16. RN: Place Butt. Urology was consulted. 09/17. Abdominal CT performed showed severely distended bladder with bilateral hydronephrosis secondary to bladder outlet obstruction, and possible rectal lesion due to irregularity seen on CAT scan. Urology will place a Butt today. GI consulted for consideration of colonoscopy. Patient had an x-ray performed on admission that showed 2.2 cm nodular density in the left midlung and he is airspace disease in the left midlung as well. He will need follow-up with a investment consultant for lung nodule work-up. Problems --Acute renal failure Current Visit: Yes Status: Acute Qualifiers: Qualified Code(s): N17.9 - Acute kidney failure, unspecified Plan to address problem: LIANNA secondary to bladder outlet obstruction Creatinine--5>5.5>6.5. Urology consulted for Butt placement Nephrology on board Avoid nephrotoxic medications ---Hypertensive urgency Current Visit: Yes Status: Acute Plan to address problem: Patient not on home bp medicine Monitor blood pressure start amlodipine daily PRN labetolol q 6hrs Discussed medication compliance ---Swelling of both lower extremities Current Visit: Yes Status: Acute Plan to address problem: ? cause as result of renal failure Hold diuretics. Elevate foot of the bed. ---Lung nodule Current Visit: Yes Status: Acute Plan to address problem: Follow-up with pulmonology in the office for monitoring ---DVT prophylaxis Current Visit: Yes Status: Acute Plan to address problem: sqh History Interval history: Patient seen and examined at bedside this morning He has no complaints Renal function continues to worsen. Urology evaluation pending Hospitalist Physical - Physical exam Narrative exam: VITAL SIGNS: Reviewed. GENERAL: Awake HEAD: No signs of head trauma. EYES: Pupils are equal. Extraocular motions intact. MOUTH: Oropharynx is normal. NECK: No adenopathy, no JVD. CHEST: Chest with diminished breath sounds bilaterally. No wheezes, rales, or rhonchi. CARDIAC: normal S1 and S2, without murmurs, gallops, or rubs. ABDOMEN: Soft, non tender and non distended. No rebound or guarding, and no masses palpated. Bowel Sounds normal. MUSCULOSKELETAL: No edema NEUROLOGIC EXAM: Alert and oriented x3. No focal neurologic deficits SKIN: No obvious lesions - Constitutional Vitals: Temp Pulse Resp BP Pulse Ox 98.3 F 88 20 164/86 99 09/17/20 11:55 09/17/20 11:55 09/17/20 11:55 09/17/20 11:55 09/17/20 11:55 General appearance: Present: other (Frail appearing elderly patient. Has bilateral pitting edema) HEART Score - HEART Score Troponin: Troponin T < 0.010 ng/mL (0.00-0.029) 09/16/20 05:15 Results - Labs CBC & Chem 7: 09/15/20 22:41 09/17/20 08:15 Labs: Laboratory Last Values WBC 6.3 K/mm3 (4.5-11.0) 09/15/20 22:41 RBC 3.72 M/mm3 (3.65-5.03) 09/15/20 22:41 Hgb 10.0 gm/dl (11.8-15.2) L 09/15/20 22:41 Hct 30.1 % (35.5-45.6) L 09/15/20 22:41 MCV 81 fl (84-94) L 09/15/20 22:41 MCH 27 pg (28-32) L 09/15/20 22:41 MCHC 33 % (32-34) 09/15/20 22:41 RDW 16.6 % (13.2-15.2) H 09/15/20 22:41 Plt Count 270 K/mm3 (140-440) 09/15/20 22:41 Lymph % (Auto) 23.7 % (13.4-35.0) 09/15/20 22:41 [place] % (Auto) 11.9 % (0.0-7.3) H 09/15/20 22:41 Eos % (Auto) 3.9 % (0.0-4.3) 09/15/20 22:41 Baso % (Auto) 0.9 % (0.0-1.8) 09/15/20 22:41 Lymph # (Auto) 1.5 K/mm3 (1.2-5.4) 09/15/20 22:41 [place] # (Auto) 0.7 K/mm3 (0.0-0.8) 09/15/20 22:41 Eos # (Auto) 0.2 K/mm3 (0.0-0.4) 09/15/20 22:41 Baso # (Auto) 0.1 K/mm3 (0.0-0.1) 09/15/20 22:41 Seg Neutrophils % 59.6 % (40.0-70.0) 09/15/20 22:41 Seg Neutrophils # 3.7 K/mm3 (1.8-7.7) 09/15/20 22:41 Sodium 139 mmol/L (137-145) 09/17/20 08:15 Potassium 5.1 mmol/L (3.6-5.0) H 09/17/20 08:15 Chloride 107.6 mmol/L (98-107) H 09/17/20 08:15 Carbon Dioxide 20 mmol/L (22-30) L 09/17/20 08:15 Anion Gap 17 mmol/L 09/17/20 08:15 BUN 48 mg/dL (9-20) H 09/17/20 08:15 Creatinine 6.5 mg/dL (0.8-1.3) H 09/17/20 08:15 Estimated GFR 10 ml/min 09/17/20 08:15 BUN/Creatinine Ratio 7 % 09/17/20 08:15 Glucose 95 mg/dL (75-100) 09/17/20 08:15 Hemoglobin A1c 5.6 % (4-6) 09/16/20 05:15 Calcium 8.8 mg/dL (8.4-10.2) 09/17/20 08:15 Total Bilirubin 0.50 mg/dL (0.1-1.2) 09/16/20 05:15 Direct Bilirubin < 0.2 mg/dL (0-0.2) 09/16/20 05:15 Indirect Bilirubin 0.3 mg/dL 09/16/20 05:15 AST 24 units/L (5-40) 09/16/20 05:15 ALT 22 units/L (7-56) 09/16/20 05:15 Alkaline Phosphatase 102 units/L (35-129) 09/16/20 05:15 Troponin T < 0.010 ng/mL (0.00-0.029) 09/16/20 05:15 NT-Pro-B Natriuret Pep 544.7 pg/mL (0-900) 09/15/20 22:41 Total Protein 6.9 g/dL (6.3-8.2) 09/16/20 05:15 Albumin 3.5 g/dL (3.9-5) L 09/16/20 05:15 Albumin/Globulin Ratio 1.0 % 09/16/20 05:15 Triglycerides 58 mg/dL (2-149) 09/16/20 05:15 Cholesterol 139 mg/dL (50-199) 09/16/20 05:15 LDL Cholesterol Direct 72 mg/dL (50-130) 09/16/20 05:15 HDL Cholesterol 56 mg/dL (40-59) 09/16/20 05:15 Cholesterol/HDL Ratio 2.48 % 09/16/20 05:15 Lipase 10 units/L (13-60) L 09/15/20 22:41 Urine Color Straw (Yellow) 09/15/20 Unknown Urine Turbidity Clear (Clear) 09/15/20 Unknown Urine pH 5.0 (5.0-7.0) 09/15/20 Unknown Ur Specific [place] 1.010 (1.003-1.030) 09/15/20 Unknown Urine Protein <15 mg/dl mg/dL (Negative) 09/15/20 Unknown Urine Glucose (UA) Neg mg/dL (Negative) 09/15/20 Unknown Urine Ketones Neg mg/dL (Negative) 09/15/20 Unknown Urine Blood Mod (Negative) 09/15/20 Unknown Urine Nitrite Neg (Negative) 09/15/20 Unknown Urine Bilirubin Neg (Negative) 09/15/20 Unknown Urine Urobilinogen < 2.0 mg/dL (<2.0) 09/15/20 Unknown Ur Leukocyte Esterase Neg (Negative) 09/15/20 Unknown Urine WBC (Auto) 5.0 /HPF (0.0-6.0) 09/15/20 Unknown Urine RBC (Auto) 27.0 /HPF (0.0-6.0) 09/15/20 Unknown U Epithel Cells (Auto) < 1.0 /HPF (0-13.0) 09/15/20 Unknown Urine Bacteria (Auto) 1+ /HPF (Negative) 09/15/20 Unknown Urine Mucus Few /HPF 09/15/20 Unknown - Diagnostic Impressions Diagnostic Impressions: Echocardiogram 09/16/20 03:02 Transthoracic Echocardiogram Indication: Leg edema BP: 215/108 HR: 67 Conclusions *BORDERLINE LAE *MILD LVH *EF 65-70% *TRIVIAL PERICARDIAL EFFUSION Findings Left Ventricle: The left ventricular chamber size is normal. Mild concentric left ventricular hypertrophy is observed. Global left ventricular wall motion and contractility are within normal limits. Global left ventricular systolic function is normal. The estimated ejection fraction is 65-70%. There is an E to A reversal in the mitral valve flow pattern suggestive of diastolic dysfunction. Left Atrium: The left atrial chamber size is normal. Right Ventricle: The right ventricular cavity size is normal. The right ventricular global systolic function is normal. Right Atrium: The right atrial cavity size is normal. Aortic Valve: Mild aortic leaflet calcification is visualized. There is trace of aortic regurgitation. Mitral Valve: The mitral valve leaflets are mildly thickened. There is mild mitral regurgitation. Tricuspid Valve: The tricuspid valve leaflets are normal. There is trace tricuspid regurgitation. The right ventricular systolic pressure is calculated at 28 mmHg. Pulmonic Valve: There is no evidence of pulmonic valve thickening. There is mild pulmonic regurgitation. Pericardium: A trivial pericardial effusion is visualized. The pericardial effusion is seen adjacent to the right ventricle. Aorta: The aorta appears normal. Venous: The inferior vena cava appears normal in size. There is a greater than 50% respiratory change in the inferior vena cava dimension. Measurements Chambers 2D Name Value Normal Range IVSd (2D) 0.84 cm (0.6 - 1.1) LVPWd (2D) 0.98 cm (0.6 - 1.1) LVIDd (2D) 5.05 cm (3.7 - 5.6) LVIDs (2D) 3.24 cm (2 - 3.8) LV FS (2D) 35.96 % - EF Teichholz (2D) 65.27 % - Ao root diameter (2D) 2.77 cm (2 - 3.7) Volumes/Mass Name Value Normal Range LA ESV SP 4CH (A/L) 22.18 ml - LA ESV SP 2CH (A/L) 27.35 ml - LA ESV BP (A/L) 24.68 ml - LA ESV BP (A/L) index 12.85 ml/m2 - LA ESV SP 4CH (MOD) 20.35 ml - LA ESV SP 2CH (MOD) 26.81 ml - LA ESV BP (MOD) 22.94 ml - LA ESV BP (MOD) index 11.95 ml/m2 - Diastolic/Systolic Function Name Value Normal Range MV E-wave Vmax 0.76 m/sec - MV deceleration time 237.19 msec - MV A-wave Vmax 0.88 m/sec - MV E:A ratio 0.86 ratio - Aortic Valve Name Value Normal Range AV Vmax 1.47 m/sec - AV VTI 31.71 cm - AV peak gradient 8.7 mmHg - AV mean gradient 4.25 mmHg - LVOT diameter 2 cm - LVOT Vmax 1.06 m/sec - LVOT VTI 23.5 cm - LVOT peak gradient 4.49 mmHg - LVOT mean gradient 2.59 mmHg - SV LVOT 73.92 ml - KATLIN (continuity Vmax) 2.26 cm2 - KATLIN (continuity VTI) 2.33 cm2 - AR PHT 1006.69 msec - AR peak gradient 26.5 mmHg - Mitral Valve Name Value Normal Range MR Vmax 5.15 m/sec - Tricuspid Valve Name Value Normal Range TR Vmax 2.51 m/sec - TR peak gradient 25 mmHg - RAP 3 mmHg - RVSP 28 mmHg - IVC diameter 1.19 cm (1.2 - 2.3) Pulmonic Valve/Qp:Qs Name Value Normal Range PV Vmax 0.87 m/sec - PV peak gradient 3.01 mmHg - UT end-diastolic Vmax 1.34 m/sec - PV acceleration time 91.34 msec - Butt/IV: Voiding Method Toilet IV Catheter Type [Right INT / Saline Lock Forearm] Active Medications - Current Medications Current Medications: Generic Name Dose Route Start Last Admin Trade Name Freq PRN Reason Stop Dose Admin Acetaminophen 650 mg 09/16/20 02:51 Tylenol PO Q4H PRN Pain MILD(1-3)/Fever >100.5/REYES Al Hydrox/Mg Hydrox/Simethicone 30 ml 09/16/20 02:51 Alum-Mag Hydrox-Simeth [id number]/5ml PO Q4H PRN Indigestion Amlodipine Besylate 10 mg 09/16/20 10:00 09/17/20 09:24 Amlodipine PO 10 mg QDAY ADDY Administration Carvedilol 6.25 mg 09/17/20 10:00 09/17/20 09:24 Coreg PO 6.25 mg BID ADDY Administration Heparin Sodium (Porcine) 5,000 unit 09/16/20 03:00 09/17/20 09:25 Heparin SUB-Q 5,000 unit Q12HR ADDY Administration Hydralazine HCl 50 mg 09/17/20 09:00 09/17/20 09:24 Apresoline PO 50 mg Q8HR ADDY Administration Labetalol HCl 10 mg 09/16/20 02:38 Labetalol IV Q6H PRN Hypertension Lactulose 20 gm 09/16/20 02:57 Cephulac PO QHS PRN Constipation Magnesium Hydroxide 30 ml 09/16/20 02:51 Milk Of Magnesia PO Q4H PRN Constipation Metoclopramide HCl 5 mg 09/16/20 02:51 Reglan IV Q6H PRN Nausea And Vomiting Ondansetron HCl 4 mg 09/16/20 02:51 Zofran IV Q8H PRN Nausea And Vomiting Sodium Chloride 10 ml 09/16/20 10:00 09/17/20 09:25 Sodium Chloride Flush Syringe 10 Ml IV 10 ml BID ADDY Administration Sodium Chloride 10 ml 09/16/20 02:51 Sodium Chloride Flush Syringe 10 Ml IV PRN PRN LINE FLUSH Tramadol HCl 50 mg 09/16/20 02:57 Ultram PO Q6H PRN Pain, Moderate (4-6) Trazodone HCl 50 mg 09/16/20 02:57 Desyrel PO QHS PRN Insomnia
--- NOTE | 2020-09-17 13:13 | Consultation ---
History of Present Illness - Reason for Consult Consult date: 09/17/20 - History of Present Illness This is a 74-year-old male who presents to the emergency department with complaint of bilateral lower extremity swelling and pain. The patient was initially seen here on 08/24/2020 with a complaint of some left foot pain and mild left lower extremity swelling after stepping on a nail that went through his rubber boot. CTAP - bilat hydro exam-- redundant foreskin wire bansal (16F [place])----tanika urine A.P retention home with bansal when stable start flomax 1qd Past History Past Medical History: hypertension, renal failure, other (acute kidney injury) Past Surgical History: No surgical history Social history: no significant social history Family history: no significant family history Medications and Allergies Allergies Allergy/AdvReac Type Severity Reaction Status Date / Time No Known Allergies Allergy Unverified 12/07/13 03:13 Home Medications Medication Instructions Recorded Confirmed Last Taken Type Cyclobenzaprine [Flexeril] 10 mg PO TID PRN #15 tablet 12/07/13 09/16/20 Unknown Rx Prednisone [predniSONE 5 mg (6-Day 5 mg PO .TAPER #1 tab.ds.pk 12/07/13 09/16/20 Unknown Rx Pack, 21 Tabs)] traMADoL [Ultram] 50 mg PO Q4HR PRN #15 tablet 12/07/13 09/16/20 Unknown Rx Ciprofloxacin HCl [Ciprofloxacin 750 mg PO BID 7 Days #14 tablet 08/24/20 09/16/20 Unknown Rx TAB] Clindamycin [Clindamycin CAP] 300 mg PO Q6H 10 Days #40 cap 08/24/20 09/16/20 Unknown Rx Compress.stocking,Knee,Reg,Med 1 each MC DAILY #1 each 08/30/20 09/16/20 Unknown Rx [Jobst Anti-Embolism Stocking] Ketorolac [Toradol] 10 mg PO Q12HR PRN #10 tablet 08/30/20 09/16/20 Unknown Rx Active Meds: Active Medications Acetaminophen (Tylenol) 650 mg PO Q4H PRN PRN Reason: Pain MILD(1-3)/Fever >100.5/REYES Al Hydrox/Mg Hydrox/Simethicone (Alum-Mag Hydrox-Simeth [phone]/5ml) 30 ml PO Q4H PRN PRN Reason: Indigestion Amlodipine Besylate (Amlodipine) 10 mg PO QDAY FOR[facility], [facility] Last Admin: 09/17/20 09:24 Dose: 10 mg Documented by: Carvedilol (Coreg) 6.25 mg PO BID [facility], [facility] Last Admin: 09/17/20 09:24 Dose: 6.25 mg Documented by: Heparin Sodium (Porcine) (Heparin) 5,000 unit SUB-Q Q12HR [facility], [facility]1983 Last Admin: 09/17/20 09:25 Dose: 5,000 unit Documented by: Hydralazine HCl (Apresoline) 50 mg PO Q8HR [facility] Last Admin: 09/17/20 09:24 Dose: 50 mg Documented by: Labetalol HCl (Labetalol) 10 mg IV Q6H PRN PRN Reason: Hypertension Lactulose (Cephulac) 20 gm PO QHS PRN PRN Reason: Constipation Magnesium Hydroxide (Milk Of Magnesia) 30 ml PO Q4H PRN PRN Reason: Constipation Metoclopramide HCl (Reglan) 5 mg IV Q6H PRN PRN Reason: Nausea And Vomiting Ondansetron HCl (Zofran) 4 mg IV Q8H PRN PRN Reason: Nausea And Vomiting Sodium Chloride (Sodium Chloride Flush Syringe 10 Ml) 10 ml IV BID [facility] Last Admin: 09/17/20 09:25 Dose: 10 ml Documented by: Sodium Chloride (Sodium Chloride Flush Syringe 10 Ml) 10 ml IV PRN PRN PRN Reason: LINE FLUSH Tramadol HCl (Ultram) 50 mg PO Q6H PRN PRN Reason: Pain, Moderate (4-6) Trazodone HCl (Desyrel) 50 mg PO QHS PRN PRN Reason: Insomnia Exam - Constitutional Vitals: Temp Pulse Resp BP Pulse Ox 98.3 F 88 20 164/86 99 09/17/20 11:55 09/17/20 11:55 09/17/20 11:55 09/17/20 11:55 09/17/20 11:55 Results - Labs CBC & Chem 7: 09/15/20 22:41 09/17/20 08:15 Labs: Abnormal lab results 09/17/20 Range/Units 08:15 Potassium 5.1 H (3.6-5.0) mmol/L Chloride 107.6 H (98-107) mmol/L Carbon Dioxide 20 L (22-30) mmol/L BUN 48 H (9-20) mg/dL Creatinine 6.5 H (0.8-1.3) mg/dL
--- NOTE | 2020-09-17 13:22 | Progress Note ---
Assessment and Plan - Patient Problems (1) Acute renal failure Current Visit: Yes Status: Acute Qualifiers: Qualified Code(s): N17.9 - Acute kidney failure, unspecified Plan to address problem: Suspect LIANNA secondary to urinary retention/b/l hydronephrosis as evidenced by renal US. Recommend bansal placement, which was attempted yesterday, however was not successful. Urology consult placed. Renal US also showed b/l echogenicity along with b/l mild hydro. 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 Strict I/Os, Avoid nephrotoxins, NSAIDs, IV contrast. Will monitor lytes/renal parameters closely after bansal placement and make further recommendations (2) Hydronephrosis due to obstruction of bladder Current Visit: Yes Status: Acute Plan to address problem: follow urology recommendations (3) Hypertensive urgency Current Visit: Yes Status: Acute Plan to address problem: BP control with IV labetaolol, transitioned to po amlodipine, hydralazine Subjective Date of service: 09/17/20 Principal diagnosis: LIANNA Interval history: Pt awake, alert, denies fever, chills, n/v/d, CP, SOB, pt reports persistent b/l LE edema along with suprapubic fullness. Objective - Vital Signs Vital signs: Vital Signs - 12hr 09/17/20 09/17/20 09/17/20 04:30 08:50 09:24 Temperature 98.7 F 98.4 F Pulse Rate 83 83 83 Respiratory 18 20 Rate Blood Pressure 164/89 155/89 155/89 O2 Sat by Pulse 98 98 Oximetry 09/17/20 11:55 Temperature 98.3 F Pulse Rate 88 Respiratory 20 Rate Blood Pressure 164/86 O2 Sat by Pulse 99 Oximetry - General Appearance General appearance: well-developed, well-nourished, appears stated age EENT: ATNC, PERRL, mucous membranes moist Neck: no JVD Respiratory: Present: Clear to Ascultation Cardiology: regular, S1S2 Gastrointestinal: normoactive bowel sounds, tenderness, distended Integumentary: no rash, other (2+ edema b/l LE ) Neurologic: no focal deficit, alert and oriented x3, strength 5/5, CN 3-12 intact Psychiatric: mood/affect appropriate, cooperative - Lab 09/15/20 22:41 09/17/20 08:15 Most recent lab results Calcium 8.8 mg/dL (8.4-10.2) 09/17/20 08:15 Medications & Allergies - Medications Allergies/Adverse Reactions: Allergies No Known Allergies Allergy (Unverified 12/07/13 03:13) Home Medications: Home Medications Medication Instructions Recorded Confirmed Last Taken Type Cyclobenzaprine [Flexeril] 10 mg PO TID PRN #15 tablet 12/07/13 09/16/20 Unknown Rx Prednisone [predniSONE 5 mg (6-Day 5 mg PO .TAPER #1 tab.ds.pk 12/07/13 09/16/20 Unknown Rx Pack, 21 Tabs)] traMADoL [Ultram] 50 mg PO Q4HR PRN #15 tablet 12/07/13 09/16/20 Unknown Rx Ciprofloxacin HCl [Ciprofloxacin 750 mg PO BID 7 Days #14 tablet 08/24/20 09/16/20 Unknown Rx TAB] Clindamycin [Clindamycin CAP] 300 mg PO Q6H 10 Days #40 cap 08/24/20 09/16/20 Unknown Rx Compress.stocking,Knee,Reg,Med 1 each MC DAILY #1 each 08/30/20 09/16/20 Unknown Rx [Jobst Anti-Embolism Stocking] Ketorolac [Toradol] 10 mg PO Q12HR PRN #10 tablet 08/30/20 09/16/20 Unknown Rx Active Medications: Generic Name Dose Route Start Last Admin Trade Name Freq PRN Reason Stop Dose Admin Acetaminophen 650 mg 09/16/20 02:51 Tylenol PO Q4H PRN Pain MILD(1-3)/Fever >100.5/REYES Al Hydrox/Mg Hydrox/Simethicone 30 ml 09/16/20 02:51 Alum-Mag Hydrox-Simeth [phone]/5ml PO Q4H PRN Indigestion Amlodipine Besylate 10 mg 09/16/20 10:00 09/17/20 09:24 Amlodipine PO 10 mg QDAY ADDY Administration Carvedilol 6.25 mg 09/17/20 10:00 09/17/20 09:24 Coreg PO 6.25 mg BID ADDY Administration Heparin Sodium (Porcine) 5,000 unit 09/16/20 03:00 09/17/20 09:25 Heparin SUB-Q 5,000 unit Q12HR ADDY Administration Hydralazine HCl 50 mg 09/17/20 09:00 09/17/20 09:24 Apresoline PO 50 mg Q8HR ADDY Administration Labetalol HCl 10 mg 09/16/20 02:38 Labetalol IV Q6H PRN Hypertension Lactulose 20 gm 09/16/20 02:57 Cephulac PO QHS PRN Constipation Magnesium Hydroxide 30 ml 09/16/20 02:51 Milk Of Magnesia PO Q4H PRN Constipation Metoclopramide HCl 5 mg 09/16/20 02:51 Reglan IV Q6H PRN Nausea And Vomiting Ondansetron HCl 4 mg 09/16/20 02:51 Zofran IV Q8H PRN Nausea And Vomiting Sodium Chloride 10 ml 09/16/20 10:00 09/17/20 09:25 Sodium Chloride Flush Syringe 10 Ml IV 10 ml BID ADDY Administration Sodium Chloride 10 ml 09/16/20 02:51 Sodium Chloride Flush Syringe 10 Ml IV PRN PRN LINE FLUSH Tramadol HCl 50 mg 09/16/20 02:57 Ultram PO Q6H PRN Pain, Moderate (4-6) Trazodone HCl 50 mg 09/16/20 02:57 Desyrel PO QHS PRN Insomnia
[2020-09-17] MEDS ORDERED: MORPHINE 2 MG/1 ML INJ IV PRN (17:37)
[2020-09-17 20:26] LABS: Hemoglobin 10.5 gm/dl (11.8-15.2)
[2020-09-18] MEDS: hydrALAZINE 25 MG TAB PO SCH ×3 (05:38→21:11)
[2020-09-18 06:37] LABS: Calcium 8.9 mg/dL (8.4-10.2)
[2020-09-18] MEDS: TAMSULOSIN 0.4 MG CAP PO SCH (09:02)
[2020-09-18] MEDS: carvediloL 6.25 MG TAB PO SCH ×2 (09:02→21:12)
[2020-09-18] MEDS: amLODIPine 10 MG TAB PO SCH (09:02)
--- NOTE | 2020-09-18 10:07 | Progress Note ---
Assessment and Plan - Patient Problems (1) Acute renal failure Current Visit: Yes Status: Acute Qualifiers: Qualified Code(s): N17.9 - Acute kidney failure, unspecified Plan to address problem: Acute kidney injury secondary to obstructive uropathy. Improving following relief of obstruction with a Butt catheter. Urine is bloody. Consider doing a three-way Butt catheter if it is not improving. Continue to monitor e lectrolytes and renal function. If edema is improved tomorrow and patient still in postobstructive diuresis, will start gentle IV fluids. Encourage oral hydration for now. (2) Hydronephrosis due to obstruction of bladder Current Visit: Yes Status: Acute Plan to address problem: Status post relief of obstruction by urology with a Butt catheter. Maintain Butt catheter and Flomax daily and follow-up with urology as an outpatient in 2 weeks. (3) Hypertensive urgency Current Visit: Yes Status: Acute Plan to address problem: Blood pressure has improved. Follow-up blood pressure on current medications. (4) Swelling of both lower extremities Current Visit: Yes Status: Acute Plan to address problem: Improving with postobstructive diuresis. No need for diuretic at this time. (5) Anemia in chronic kidney disease Current Visit: Yes Status: Acute Plan to address problem: Follow-up hemoglobin. Subjective Date of service: 09/18/20 Principal diagnosis: LIANNA Interval history: Patient seen lying in bed. He has no new complaints. He is feeling better. No chest pain or shortness of breath. No nausea or vomiting. Swelling of his legs improving Objective - Exam Narrative Exam: Elderly -Citizen Of [place] male lying in bed In no acute distress HEENT: NCAT, Neck: Supple, no venous distention CVS: S1S2 RRR with no murmur, rub or gallop Chest: Clear to auscultation Abdomen: Protuberant, soft, nontender, no organomegaly, bowel sounds are present Extremities: 2+ pitting edema Neuro: Awake, alert no focal deficits - Vital Signs Vital signs: Vital Signs - 12hr 09/17/20 09/17/20 09/18/20 22:49 23:00 00:01 Temperature 98.5 F Pulse Rate 80 80 88 Respiratory 18 Rate Blood Pressure 176/86 157/78 O2 Sat by Pulse 97 Oximetry 09/18/20 09/18/20 09/18/20 05:38 05:57 08:25 Temperature 98.6 F 98.4 F Pulse Rate 88 82 Respiratory 18 18 Rate Blood Pressure 157/78 131/73 140/64 O2 Sat by Pulse 97 97 Oximetry - Lab 09/17/20 19:36 09/18/20 05:57 Most recent lab results Calcium 8.9 mg/dL (8.4-10.2) 09/18/20 05:57 Medications & Allergies - Medications Allergies/Adverse Reactions: Allergies No Known Allergies Allergy (Unverified 12/07/13 03:13) Home Medications: Home Medications Medication Instructions Recorded Confirmed Last Taken Type Cyclobenzaprine [Flexeril] 10 mg PO TID PRN #15 tablet 12/07/13 09/16/20 Unknown Rx Prednisone [predniSONE 5 mg (6-Day 5 mg PO .TAPER #1 tab.ds.pk 12/07/13 09/16/20 Unknown Rx Pack, 21 Tabs)] traMADoL [Ultram] 50 mg PO Q4HR PRN #15 tablet 12/07/13 09/16/20 Unknown Rx Ciprofloxacin HCl [Ciprofloxacin 750 mg PO BID 7 Days #14 tablet 08/24/20 09/16/20 Unknown Rx TAB] Clindamycin [Clindamycin CAP] 300 mg PO Q6H 10 Days #40 cap 08/24/20 09/16/20 Unknown Rx Compress.stocking,Knee,Reg,Med 1 each MC DAILY #1 each 08/30/20 09/16/20 Unknown Rx [Jobst Anti-Embolism Stocking] Ketorolac [Toradol] 10 mg PO Q12HR PRN #10 tablet 08/30/20 09/16/20 Unknown Rx Active Medications: Generic Name Dose Route Start Last Admin Trade Name Freq PRN Reason Stop Dose Admin Acetaminophen 650 mg 09/16/20 02:51 Tylenol PO Q4H PRN Pain MILD(1-3)/Fever >100.5/REYES Al Hydrox/Mg Hydrox/Simethicone 30 ml 09/16/20 02:51 Alum-Mag Hydrox-Simeth 958-298-93og/5ml PO Q4H PRN Indigestion Amlodipine Besylate 10 mg 09/16/20 10:00 09/18/20 09:02 Amlodipine PO 10 mg QDAY ADDY Administration Carvedilol 6.25 mg 09/17/20 10:00 09/18/20 09:02 Coreg PO 6.25 mg BID ADDY Administration Hydralazine HCl 50 mg 09/17/20 09:00 09/18/20 05:38 Apresoline PO 50 mg Q8HR ADDY Administration Labetalol HCl 10 mg 09/16/20 02:38 Labetalol IV Q6H PRN Hypertension Lactulose 20 gm 09/16/20 02:57 Cephulac PO QHS PRN Constipation Magnesium Hydroxide 30 ml 09/16/20 02:51 Milk Of Magnesia PO Q4H PRN Constipation Metoclopramide HCl 5 mg 09/16/20 02:51 Reglan IV Q6H PRN Nausea And Vomiting Morphine Sulfate 2 mg 09/17/20 17:37 09/17/20 18:53 Morphine IV 2 mg Q4H PRN Administration Pain, Moderate (4-6) Ondansetron HCl 4 mg 09/16/20 02:51 09/17/20 18:53 Zofran IV 4 mg Q8H PRN Administration Nausea And Vomiting Sodium Chloride 10 ml 09/16/20 10:00 09/18/20 09:02 Sodium Chloride Flush Syringe 10 Ml IV 10 ml BID ADDY Administration Sodium Chloride 10 ml 09/16/20 02:51 Sodium Chloride Flush Syringe 10 Ml IV PRN PRN LINE FLUSH Tamsulosin HCl 0.4 mg 09/18/20 10:00 09/18/20 09:02 Flomax PO 0.4 mg QDAY ADDY Administration Tramadol HCl 50 mg 09/16/20 02:57 09/17/20 15:05 Ultram PO 50 mg Q6H PRN Administration Pain, Moderate (4-6) Trazodone HCl 50 mg 09/16/20 02:57 Desyrel PO QHS PRN Insomnia
--- NOTE | 2020-09-18 14:16 | Progress Note ---
Assessment and Plan Assessment and plan: 74-year-old male who presented to the emergency room with chief complaint of bilateral lower extremity swelling and difficulty with ambulation. He reports symptoms started about 2 weeks ago. He denies any shortness of breath, chest pain. He he denies any urinary retention. Here in the ER, patient was found to have elevated creatinine-5.0 and admitted for evaluation. He also found to have elevated blood pressure. He denies any history of kidney disease. Nephrology was consulted in the ER. Patient had an ultrasound of the kidneys that showed bilateral hydronephrosis. Nephrology advised Bansal placement. 09/16. RN: Place Bansal. Urology was consulted. 09/17. Abdominal CT performed showed severely distended bladder with bilateral hydronephrosis secondary to bladder outlet obstruction, and possible rectal lesion due to irregularity seen on CAT scan. Urology will place a Bansal today. GI consulted for consideration of colonoscopy. Patient had an x-ray performed on admission that showed 2.2 cm nodular density in the left midlung and he is airspace disease in the left midlung as well. He will need follow-up with a binman for lung nodule work-up. 09/18. Renal function better after bansal placement. Cr 3.8. Urology following. Had bloody urine in bansal and DVT ppx has been dced. Consulted GI due to rectal wall thickening (patient has not had a colonoscopy in the past. Problems --Acute renal failure Current Visit: Yes Status: Acute Qualifiers: Qualified Code(s): N17.9 - Acute kidney failure, unspecified Plan to address problem: LIANNA secondary to bladder outlet obstruction Creatinine--5>5.5>6.5>>3.8 Bansal draining . Urology on board. Nephrology on board Avoid nephrotoxic medications ---Bladder outlet obstruction Current Visit: Yes Status: Acute Plan to address problem: Bansal placed with good effect Started on flomax Bansal draining bloody urine. Urology following ---Hypertensive urgency Current Visit: Yes Status: Acute Plan to address problem: Patient not on home bp medicine Monitor blood pressure Continue amlodipine daily PRN labetolol q 6hrs Discussed medication compliance ---Swelling of both lower extremities Current Visit: Yes Status: Acute Plan to address problem: ? cause as result of renal failure Hold diuretics. Elevate foot of the bed. ---Lung nodule Current Visit: Yes Status: Acute Plan to address problem: Follow-up with pulmonology in the office for monitoring ---DVT prophylaxis Current Visit: Yes Status: Acute Plan to address problem: sqh History Interval history: Patient seen and examined at bedside this morning Bansal draining bloody urine Urology on board Hospitalist Physical - Physical exam Narrative exam: VITAL SIGNS: Reviewed. GENERAL: Awake HEAD: No signs of head trauma. EYES: Pupils are equal. Extraocular motions intact. MOUTH: Oropharynx is normal. NECK: No adenopathy, no JVD. CHEST: Chest with diminished breath sounds bilaterally. No wheezes, rales, or rhonchi. CARDIAC: normal S1 and S2, without murmurs, gallops, or rubs. ABDOMEN: Soft, non tender and non distended. No rebound or guarding, and no masses palpated. Bowel Sounds normal. MUSCULOSKELETAL: Edema NEUROLOGIC EXAM: Alert and oriented x3. No focal neurologic deficits SKIN: No obvious lesions - Constitutional Vitals: Temp Pulse Resp BP Pulse Ox 98.4 F 82 18 140/64 97 09/18/20 08:25 09/18/20 08:25 09/18/20 08:25 09/18/20 08:25 09/18/20 08:25 General appearance: Present: other (Frail appearing elderly patient. Has bilateral pitting edema) HEART Score - HEART Score Troponin: Troponin T < 0.010 ng/mL (0.00-0.029) 09/16/20 05:15 Results - Labs CBC & Chem 7: 09/17/20 19:36 09/18/20 05:57 Labs: Laboratory Last Values WBC 6.3 K/mm3 (4.5-11.0) 09/15/20 22:41 RBC 3.72 M/mm3 (3.65-5.03) 09/15/20 22:41 Hgb 10.5 gm/dl (11.8-15.2) L 09/17/20 19:36 Hct 31.0 % (35.5-45.6) L 09/17/20 19:36 MCV 81 fl (84-94) L 09/15/20 22:41 MCH 27 pg (28-32) L 09/15/20 22:41 MCHC 33 % (32-34) 09/15/20 22:41 RDW 16.6 % (13.2-15.2) H 09/15/20 22:41 Plt Count 270 K/mm3 (140-440) 09/15/20 22:41 Lymph % (Auto) 23.7 % (13.4-35.0) 09/15/20 22:41 [place] % (Auto) 11.9 % (0.0-7.3) H 09/15/20 22:41 Eos % (Auto) 3.9 % (0.0-4.3) 09/15/20 22:41 Baso % (Auto) 0.9 % (0.0-1.8) 09/15/20 22:41 Lymph # (Auto) 1.5 K/mm3 (1.2-5.4) 09/15/20 22:41 [place]gs # (Auto) 0.7 K/mm3 (0.0-0.8) 09/15/20 22:41 Eos # (Auto) 0.2 K/mm3 (0.0-0.4) 09/15/20 22:41 Baso # (Auto) 0.1 K/mm3 (0.0-0.1) 09/15/20 22:41 Seg Neutrophils % 59.6 % (40.0-70.0) 09/15/20 22:41 Seg Neutrophils # 3.7 K/mm3 (1.8-7.7) 09/15/20 22:41 Sodium 138 mmol/L (137-145) 09/18/20 05:57 Potassium 4.9 mmol/L (3.6-5.0) 09/18/20 05:57 Chloride 105.3 mmol/L (98-107) 09/18/20 05:57 Carbon Dioxide 21 mmol/L (22-30) L 09/18/20 05:57 Anion Gap 17 mmol/L 09/18/20 05:57 BUN 36 mg/dL (9-20) H 09/18/20 05:57 Creatinine 3.8 mg/dL (0.8-1.3) H 09/18/20 05:57 Estimated GFR 19 ml/min 09/18/20 05:57 BUN/Creatinine Ratio 9 % 09/18/20 05:57 Glucose 107 mg/dL (75-100) H 09/18/20 05:57 Hemoglobin A1c 5.6 % (4-6) 09/16/20 05:15 Calcium 8.9 mg/dL (8.4-10.2) 09/18/20 05:57 Total Bilirubin 0.50 mg/dL (0.1-1.2) 09/16/20 05:15 Direct Bilirubin < 0.2 mg/dL (0-0.2) 09/16/20 05:15 Indirect Bilirubin 0.3 mg/dL 09/16/20 05:15 AST 24 units/L (5-40) 09/16/20 05:15 ALT 22 units/L (7-56) 09/16/20 05:15 Alkaline Phosphatase 102 units/L (35-129) 09/16/20 05:15 Troponin T < 0.010 ng/mL (0.00-0.029) 09/16/20 05:15 NT-Pro-B Natriuret Pep 544.7 pg/mL (0-900) 09/15/20 22:41 Total Protein 6.9 g/dL (6.3-8.2) 09/16/20 05:15 Albumin 3.5 g/dL (3.9-5) L 09/16/20 05:15 Albumin/Globulin Ratio 1.0 % 09/16/20 05:15 Triglycerides 58 mg/dL (2-149) 09/16/20 05:15 Cholesterol 139 mg/dL (50-199) 09/16/20 05:15 LDL Cholesterol Direct 72 mg/dL (50-130) 09/16/20 05:15 HDL Cholesterol 56 mg/dL (40-59) 09/16/20 05:15 Cholesterol/HDL Ratio 2.48 % 09/16/20 05:15 Lipase 10 units/L (13-60) L 09/15/20 22:41 Urine Color Straw (Yellow) 09/15/20 Unknown Urine Turbidity Clear (Clear) 09/15/20 Unknown Urine pH 5.0 (5.0-7.0) 09/15/20 Unknown Ur Specific [place] 1.010 (1.003-1.030) 09/15/20 Unknown Urine Protein <15 mg/dl mg/dL (Negative) 09/15/20 Unknown Urine Glucose (UA) Neg mg/dL (Negative) 09/15/20 Unknown Urine Ketones Neg mg/dL (Negative) 09/15/20 Unknown Urine Blood Mod (Negative) 09/15/20 Unknown Urine Nitrite Neg (Negative) 09/15/20 Unknown Urine Bilirubin Neg (Negative) 09/15/20 Unknown Urine Urobilinogen < 2.0 mg/dL (<2.0) 09/15/20 Unknown Ur Leukocyte Esterase Neg (Negative) 09/15/20 Unknown Urine WBC (Auto) 5.0 /HPF (0.0-6.0) 09/15/20 Unknown Urine RBC (Auto) 27.0 /HPF (0.0-6.0) 09/15/20 Unknown U Epithel Cells (Auto) < 1.0 /HPF (0-13.0) 09/15/20 Unknown Urine Bacteria (Auto) 1+ /HPF (Negative) 09/15/20 Unknown Urine Mucus Few /HPF 09/15/20 Unknown - Diagnostic Impressions Diagnostic Impressions: Echocardiogram 09/16/20 03:02 Transthoracic Echocardiogram Indication: Leg edema BP: 215/108 HR: 67 Conclusions *BORDERLINE LAE *MILD LVH *EF 65-70% *TRIVIAL PERICARDIAL EFFUSION Findings Left Ventricle: The left ventricular chamber size is normal. Mild concentric left ventricular hypertrophy is observed. Global left ventricular wall motion and contractility are within normal limits. Global left ventricular systolic function is normal. The estimated ejection fraction is 65-70%. There is an E to A reversal in the mitral valve flow pattern suggestive of diastolic dysfunction. Left Atrium: The left atrial chamber size is normal. Right Ventricle: The right ventricular cavity size is normal. The right ventricular global systolic function is normal. Right Atrium: The right atrial cavity size is normal. Aortic Valve: Mild aortic leaflet calcification is visualized. There is trace of aortic regurgitation. Mitral Valve: The mitral valve leaflets are mildly thickened. There is mild mitral regurgitation. Tricuspid Valve: The tricuspid valve leaflets are normal. There is trace tricuspid regurgitation. The right ventricular systolic pressure is calculated at 28 mmHg. Pulmonic Valve: There is no evidence of pulmonic valve thickening. There is mild pulmonic regurgitation. Pericardium: A trivial pericardial effusion is visualized. The pericardial effusion is seen adjacent to the right ventricle. Aorta: The aorta appears normal. Venous: The inferior vena cava appears normal in size. There is a greater than 50% respiratory change in the inferior vena cava dimension. Measurements Chambers 2D Name Value Normal Range IVSd (2D) 0.84 cm (0.6 - 1.1) LVPWd (2D) 0.98 cm (0.6 - 1.1) LVIDd (2D) 5.05 cm (3.7 - 5.6) LVIDs (2D) 3.24 cm (2 - 3.8) LV FS (2D) 35.96 % - EF Teichholz (2D) 65.27 % - Ao root diameter (2D) 2.77 cm (2 - 3.7) Volumes/Mass Name Value Normal Range LA ESV SP 4CH (A/L) 22.18 ml - LA ESV SP 2CH (A/L) 27.35 ml - LA ESV BP (A/L) 24.68 ml - LA ESV BP (A/L) index 12.85 ml/m2 - LA ESV SP 4CH (MOD) 20.35 ml - LA ESV SP 2CH (MOD) 26.81 ml - LA ESV BP (MOD) 22.94 ml - LA ESV BP (MOD) index 11.95 ml/m2 - Diastolic/Systolic Function Name Value Normal Range MV E-wave Vmax 0.76 m/sec - MV deceleration time 237.19 msec - MV A-wave Vmax 0.88 m/sec - MV E:A ratio 0.86 ratio - Aortic Valve Name Value Normal Range AV Vmax 1.47 m/sec - AV VTI 31.71 cm - AV peak gradient 8.7 mmHg - AV mean gradient 4.25 mmHg - LVOT diameter 2 cm - LVOT Vmax 1.06 m/sec - LVOT VTI 23.5 cm - LVOT peak gradient 4.49 mmHg - LVOT mean gradient 2.59 mmHg - SV LVOT 73.92 ml - KATLIN (continuity Vmax) 2.26 cm2 - KATLIN (continuity VTI) 2.33 cm2 - AR PHT 1006.69 msec - AR peak gradient 26.5 mmHg - Mitral Valve Name Value Normal Range MR Vmax 5.15 m/sec - Tricuspid Valve Name Value Normal Range TR Vmax 2.51 m/sec - TR peak gradient 25 mmHg - RAP 3 mmHg - RVSP 28 mmHg - IVC diameter 1.19 cm (1.2 - 2.3) Pulmonic Valve/Qp:Qs Name Value Normal Range PV Vmax 0.87 m/sec - PV peak gradient 3.01 mmHg - TX end-diastolic Vmax 1.34 m/sec - PV acceleration time 91.34 msec - Bansal/IV: Voiding Method Indwelling Catheter IV Catheter Type [Right INT / Saline Lock Forearm] Active Medications - Current Medications Current Medications: Generic Name Dose Route Start Last Admin Trade Name Freq PRN Reason Stop Dose Admin Acetaminophen 650 mg 09/16/20 02:51 Tylenol PO Q4H PRN Pain MILD(1-3)/Fever >100.5/REYES Al Hydrox/Mg Hydrox/Simethicone 30 ml 09/16/20 02:51 Alum-Mag Hydrox-Simeth 465-777-39pe/5ml PO Q4H PRN Indigestion Amlodipine Besylate 10 mg 09/16/20 10:00 09/18/20 09:02 Amlodipine PO 10 mg QDAY ADDY Administration Carvedilol 6.25 mg 09/17/20 10:00 09/18/20 09:02 Coreg PO 6.25 mg BID ADDY Administration Hydralazine HCl 50 mg 09/17/20 09:00 09/18/20 05:38 Apresoline PO 50 mg Q8HR ADDY Administration Labetalol HCl 10 mg 09/16/20 02:38 Labetalol IV Q6H PRN Hypertension Lactulose 20 gm 09/16/20 02:57 Cephulac PO QHS PRN Constipation Magnesium Hydroxide 30 ml 09/16/20 02:51 Milk Of Magnesia PO Q4H PRN Constipation Metoclopramide HCl 5 mg 09/16/20 02:51 Reglan IV Q6H PRN Nausea And Vomiting Morphine Sulfate 2 mg 09/17/20 17:37 09/17/20 18:53 Morphine IV 2 mg Q4H PRN Administration Pain, Moderate (4-6) Ondansetron HCl 4 mg 09/16/20 02:51 09/17/20 18:53 Zofran IV 4 mg Q8H PRN Administration Nausea And Vomiting Sodium Chloride 10 ml 09/16/20 10:00 09/18/20 09:02 Sodium Chloride Flush Syringe 10 Ml IV 10 ml BID ADDY Administration Sodium Chloride 10 ml 09/16/20 02:51 Sodium Chloride Flush Syringe 10 Ml IV PRN PRN LINE FLUSH Tamsulosin HCl 0.4 mg 09/18/20 10:00 09/18/20 09:02 Flomax PO 0.4 mg QDAY ADDY Administration Tramadol HCl 50 mg 09/16/20 02:57 09/17/20 15:05 Ultram PO 50 mg Q6H PRN Administration Pain, Moderate (4-6) Trazodone HCl 50 mg 09/16/20 02:57 Desyrel PO QHS PRN Insomnia
--- NOTE | 2020-09-18 16:31 | Event Note ---
Date: 09/18/20 Full GI consult dictated - bladder outlet obstruction with anemia with ct raising possible rectal pathology - probable colonoscopy 09/20
[2020-09-19] MEDS: amLODIPine 10 MG TAB PO SCH (09:17)
[2020-09-19] MEDS: hydrALAZINE 25 MG TAB PO SCH ×3 (09:17→21:21)
[2020-09-19] MEDS: TAMSULOSIN 0.4 MG CAP PO SCH (09:17)
[2020-09-19] MEDS: carvediloL 6.25 MG TAB PO SCH ×2 (09:17→21:21)
[2020-09-19 10:43] LABS: Calcium 8.9 mg/dL (8.4-10.2)
--- NOTE | 2020-09-19 11:59 | Progress Note ---
Assessment and Plan Assessment and plan: 74-year-old male who presented to the emergency room with chief complaint of bilateral lower extremity swelling and difficulty with ambulation. He reports symptoms started about 2 weeks ago. He denies any shortness of breath, chest pain. He he denies any urinary retention. Here in the ER, patient was found to have elevated creatinine-5.0 and admitted for evaluation. He also found to have elevated blood pressure. He denies any history of kidney disease. Nephrology was consulted in the ER. Patient had an ultrasound of the kidneys that showed bilateral hydronephrosis. Nephrology advised Bansal placement. 09/16. RN: Place Bansal. Urology was consulted. 09/17. Abdominal CT performed showed severely distended bladder with bilateral hydronephrosis secondary to bladder outlet obstruction, and possible rectal lesion due to irregularity seen on CAT scan. Urology will place a Bansal today. GI consulted for consideration of colonoscopy. Patient had an x-ray performed on admission that showed 2.2 cm nodular density in the left midlung and he is airspace disease in the left midlung as well. He will need follow-up with a meat curer for lung nodule work-up. 09/18. Renal function better after bansal placement. Cr 3.8. Urology following. Had bloody urine in bansal and DVT ppx has been dced. Consulted GI due to rectal wall thickening (patient has not had a colonoscopy in the past. 09/19. Urine in Bansal clearing up. Plan for colonoscopy tomorrow Problems --Acute renal failure Current Visit: Yes Status: Acute Qualifiers: Qualified Code(s): N17.9 - Acute kidney failure, unspecified Plan to address problem: LIANNA secondary to bladder outlet obstruction Creatinine--5>5.5>6.5>>3.8 Bansal draining . Urology on board. Nephrology on board Avoid nephrotoxic medications ---Bladder outlet obstruction Current Visit: Yes Status: Acute Plan to address problem: Bansal placed with good effect Started on flomax Bansal draining bloody urine. Urology following ---Hypertensive urgency Current Visit: Yes Status: Acute Plan to address problem: Patient not on home bp medicine Monitor blood pressure Continue amlodipine daily PRN labetolol q 6hrs Discussed medication compliance ---Swelling of both lower extremities Current Visit: Yes Status: Acute Plan to address problem: ? cause as result of renal failure Hold diuretics. Elevate foot of the bed. ---Lung nodule Current Visit: Yes Status: Acute Plan to address problem: Follow-up with pulmonology in the office for monitoring --- Rectal thickening Current Visit: Yes Status: Acute Plan to address problem: Plan for colonoscopy tomorrow GI recommendations appreciated ---DVT prophylaxis Current Visit: Yes Status: Acute Plan to address problem: sqh History Interval history: Patient seen and examined at bedside this morning No new complaints Urine clearing gradually. Gi to perform colonoscopy tomorrow Hospitalist Physical - Physical exam Narrative exam: VITAL SIGNS: Reviewed. GENERAL: Awake HEAD: No signs of head trauma. EYES: Pupils are equal. Extraocular motions intact. MOUTH: Oropharynx is normal. NECK: No adenopathy, no JVD. CHEST: Chest with diminished breath sounds bilaterally. No wheezes, rales, or rhonchi. CARDIAC: normal S1 and S2, without murmurs, gallops, or rubs. ABDOMEN: Soft, non tender and non distended. No rebound or guarding, and no masses palpated. Bowel Sounds normal. MUSCULOSKELETAL: Edema NEUROLOGIC EXAM: Alert and oriented x3. No focal neurologic deficits SKIN: No obvious lesions - Constitutional Vitals: Temp Pulse Resp BP Pulse Ox 99.4 F 86 17 135/66 96 09/19/20 04:58 09/19/20 11:25 09/19/20 04:58 09/19/20 04:58 09/19/20 04:58 General appearance: Present: other (Frail appearing elderly patient. Has bilateral pitting edema) HEART Score - HEART Score Troponin: Troponin T < 0.010 ng/mL (0.00-0.029) 09/16/20 05:15 Results - Labs CBC & Chem 7: 09/17/20 19:36 09/19/20 09:29 Labs: Laboratory Last Values WBC 6.3 K/mm3 (4.5-11.0) 09/15/20 22:41 RBC 3.72 M/mm3 (3.65-5.03) 09/15/20 22:41 Hgb 10.5 gm/dl (11.8-15.2) L 09/17/20 19:36 Hct 31.0 % (35.5-45.6) L 09/17/20 19:36 MCV 81 fl (84-94) L 09/15/20 22:41 MCH 27 pg (28-32) L 09/15/20 22:41 MCHC 33 % (32-34) 09/15/20 22:41 RDW 16.6 % (13.2-15.2) H 09/15/20 22:41 Plt Count 270 K/mm3 (140-440) 09/15/20 22:41 Lymph % (Auto) 23.7 % (13.4-35.0) 09/15/20 22:41 Hickman % (Auto) 11.9 % (0.0-7.3) H 09/15/20 22:41 Eos % (Auto) 3.9 % (0.0-4.3) 09/15/20 22:41 Baso % (Auto) 0.9 % (0.0-1.8) 09/15/20 22:41 Lymph # (Auto) 1.5 K/mm3 (1.2-5.4) 09/15/20 22:41 Hickman # (Auto) 0.7 K/mm3 (0.0-0.8) 09/15/20 22:41 Eos # (Auto) 0.2 K/mm3 (0.0-0.4) 09/15/20 22:41 Baso # (Auto) 0.1 K/mm3 (0.0-0.1) 09/15/20 22:41 Seg Neutrophils % 59.6 % (40.0-70.0) 09/15/20 22:41 Seg Neutrophils # 3.7 K/mm3 (1.8-7.7) 09/15/20 22:41 Sodium 138 mmol/L (137-145) 09/19/20 09:29 Potassium 3.7 mmol/L (3.6-5.0) D 09/19/20 09:29 Chloride 103.5 mmol/L (98-107) 09/19/20 09:29 Carbon Dioxide 22 mmol/L (22-30) 09/19/20 09:29 Anion Gap 16 mmol/L 09/19/20 09:29 BUN 22 mg/dL (9-20) H 09/19/20 09:29 Creatinine 2.0 mg/dL (0.8-1.3) H 09/19/20 09:29 Estimated GFR 40 ml/min 09/19/20 09:29 BUN/Creatinine Ratio 11 % 09/19/20 09:29 Glucose 148 mg/dL (75-100) H 09/19/20 09:29 Hemoglobin A1c 5.6 % (4-6) 09/16/20 05:15 Calcium 8.9 mg/dL (8.4-10.2) 09/19/20 09:29 Total Bilirubin 0.50 mg/dL (0.1-1.2) 09/16/20 05:15 Direct Bilirubin < 0.2 mg/dL (0-0.2) 09/16/20 05:15 Indirect Bilirubin 0.3 mg/dL 09/16/20 05:15 AST 24 units/L (5-40) 09/16/20 05:15 ALT 22 units/L (7-56) 09/16/20 05:15 Alkaline Phosphatase 102 units/L (35-129) 09/16/20 05:15 Troponin T < 0.010 ng/mL (0.00-0.029) 09/16/20 05:15 NT-Pro-B Natriuret Pep 544.7 pg/mL (0-900) 09/15/20 22:41 Total Protein 6.9 g/dL (6.3-8.2) 09/16/20 05:15 Albumin 3.5 g/dL (3.9-5) L 09/16/20 05:15 Albumin/Globulin Ratio 1.0 % 09/16/20 05:15 Triglycerides 58 mg/dL (2-149) 09/16/20 05:15 Cholesterol 139 mg/dL (50-199) 09/16/20 05:15 LDL Cholesterol Direct 72 mg/dL (50-130) 09/16/20 05:15 HDL Cholesterol 56 mg/dL (40-59) 09/16/20 05:15 Cholesterol/HDL Ratio 2.48 % 09/16/20 05:15 Lipase 10 units/L (13-60) L 09/15/20 22:41 Urine Color Straw (Yellow) 09/15/20 Unknown Urine Turbidity Clear (Clear) 09/15/20 Unknown Urine pH 5.0 (5.0-7.0) 09/15/20 Unknown Ur Specific [place] 1.010 (1.003-1.030) 09/15/20 Unknown Urine Protein <15 mg/dl mg/dL (Negative) 09/15/20 Unknown Urine Glucose (UA) Neg mg/dL (Negative) 09/15/20 Unknown Urine Ketones Neg mg/dL (Negative) 09/15/20 Unknown Urine Blood Mod (Negative) 09/15/20 Unknown Urine Nitrite Neg (Negative) 09/15/20 Unknown Urine Bilirubin Neg (Negative) 09/15/20 Unknown Urine Urobilinogen < 2.0 mg/dL (<2.0) 09/15/20 Unknown Ur Leukocyte Esterase Neg (Negative) 09/15/20 Unknown Urine WBC (Auto) 5.0 /HPF (0.0-6.0) 09/15/20 Unknown Urine RBC (Auto) 27.0 /HPF (0.0-6.0) 09/15/20 Unknown U Epithel Cells (Auto) < 1.0 /HPF (0-13.0) 09/15/20 Unknown Urine Bacteria (Auto) 1+ /HPF (Negative) 09/15/20 Unknown Urine Mucus Few /HPF 09/15/20 Unknown - Diagnostic Impressions Diagnostic Impressions: Echocardiogram 09/16/20 03:02 Transthoracic Echocardiogram Indication: Leg edema BP: 215/108 HR: 67 Conclusions *BORDERLINE LAE *MILD LVH *EF 65-70% *TRIVIAL PERICARDIAL EFFUSION Findings Left Ventricle: The left ventricular chamber size is normal. Mild concentric left ventricular hypertrophy is observed. Global left ventricular wall motion and contractility are within normal limits. Global left ventricular systolic function is normal. The estimated ejection fraction is 65-70%. There is an E to A reversal in the mitral valve flow pattern suggestive of diastolic dysfunction. Left Atrium: The left atrial chamber size is normal. Right Ventricle: The right ventricular cavity size is normal. The right ventricular global systolic function is normal. Right Atrium: The right atrial cavity size is normal. Aortic Valve: Mild aortic leaflet calcification is visualized. There is trace of aortic regurgitation. Mitral Valve: The mitral valve leaflets are mildly thickened. There is mild mitral regurgitation. Tricuspid Valve: The tricuspid valve leaflets are normal. There is trace tricuspid regurgitation. The right ventricular systolic pressure is calculated at 28 mmHg. Pulmonic Valve: There is no evidence of pulmonic valve thickening. There is mild pulmonic regurgitation. Pericardium: A trivial pericardial effusion is visualized. The pericardial effusion is seen adjacent to the right ventricle. Aorta: The aorta appears normal. Venous: The inferior vena cava appears normal in size. There is a greater than 50% respiratory change in the inferior vena cava dimension. Measurements Chambers 2D Name Value Normal Range IVSd (2D) 0.84 cm (0.6 - 1.1) LVPWd (2D) 0.98 cm (0.6 - 1.1) LVIDd (2D) 5.05 cm (3.7 - 5.6) LVIDs (2D) 3.24 cm (2 - 3.8) LV FS (2D) 35.96 % - EF Teichholz (2D) 65.27 % - Ao root diameter (2D) 2.77 cm (2 - 3.7) Volumes/Mass Name Value Normal Range LA ESV SP 4CH (A/L) 22.18 ml - LA ESV SP 2CH (A/L) 27.35 ml - LA ESV BP (A/L) 24.68 ml - LA ESV BP (A/L) index 12.85 ml/m2 - LA ESV SP 4CH (MOD) 20.35 ml - LA ESV SP 2CH (MOD) 26.81 ml - LA ESV BP (MOD) 22.94 ml - LA ESV BP (MOD) index 11.95 ml/m2 - Diastolic/Systolic Function Name Value Normal Range MV E-wave Vmax 0.76 m/sec - MV deceleration time 237.19 msec - MV A-wave Vmax 0.88 m/sec - MV E:A ratio 0.86 ratio - Aortic Valve Name Value Normal Range AV Vmax 1.47 m/sec - AV VTI 31.71 cm - AV peak gradient 8.7 mmHg - AV mean gradient 4.25 mmHg - LVOT diameter 2 cm - LVOT Vmax 1.06 m/sec - LVOT VTI 23.5 cm - LVOT peak gradient 4.49 mmHg - LVOT mean gradient 2.59 mmHg - SV LVOT 73.92 ml - KATLIN (continuity Vmax) 2.26 cm2 - KATLIN (continuity VTI) 2.33 cm2 - AR PHT 1006.69 msec - AR peak gradient 26.5 mmHg - Mitral Valve Name Value Normal Range MR Vmax 5.15 m/sec - Tricuspid Valve Name Value Normal Range TR Vmax 2.51 m/sec - TR peak gradient 25 mmHg - RAP 3 mmHg - RVSP 28 mmHg - IVC diameter 1.19 cm (1.2 - 2.3) Pulmonic Valve/Qp:Qs Name Value Normal Range PV Vmax 0.87 m/sec - PV peak gradient 3.01 mmHg - TN end-diastolic Vmax 1.34 m/sec - PV acceleration time 91.34 msec - Bansal/IV: Voiding Method Indwelling Catheter IV Catheter Type [Right INT / Saline Lock Forearm] Active Medications - Current Medications Current Medications: Generic Name Dose Route Start Last Admin Trade Name Freq PRN Reason Stop Dose Admin Acetaminophen 650 mg 09/16/20 02:51 Tylenol PO Q4H PRN Pain MILD(1-3)/Fever >100.5/REYES Al Hydrox/Mg Hydrox/Simethicone 30 ml 09/16/20 02:51 Alum-Mag Hydrox-Simeth 190-310-46zx/5ml PO Q4H PRN Indigestion Amlodipine Besylate 10 mg 09/16/20 10:00 09/19/20 09:17 Amlodipine PO 10 mg QDAY ADDY Administration Carvedilol 6.25 mg 09/17/20 10:00 09/19/20 09:17 Coreg PO 6.25 mg BID ADDY Administration Hydralazine HCl 50 mg 09/17/20 09:00 09/19/20 09:17 Apresoline PO 50 mg Q8HR ADDY Administration Labetalol HCl 10 mg 09/16/20 02:38 Labetalol IV Q6H PRN Hypertension Lactulose 20 gm 09/16/20 02:57 Cephulac PO QHS PRN Constipation Magnesium Hydroxide 30 ml 09/16/20 02:51 Milk Of Magnesia PO Q4H PRN Constipation Metoclopramide HCl 5 mg 09/16/20 02:51 Reglan IV Q6H PRN Nausea And Vomiting Morphine Sulfate 2 mg 09/17/20 17:37 09/17/20 18:53 Morphine IV 2 mg Q4H PRN Administration Pain, Moderate (4-6) Ondansetron HCl 4 mg 09/16/20 02:51 09/17/20 18:53 Zofran IV 4 mg Q8H PRN Administration Nausea And Vomiting Sodium Chloride 10 ml 09/16/20 10:00 09/19/20 09:18 Sodium Chloride Flush Syringe 10 Ml IV 10 ml BID ADDY Administration Sodium Chloride 10 ml 09/16/20 02:51 Sodium Chloride Flush Syringe 10 Ml IV PRN PRN LINE FLUSH Tamsulosin HCl 0.4 mg 09/18/20 10:00 09/19/20 09:17 Flomax PO 0.4 mg QDAY ADDY Administration Tramadol HCl 50 mg 09/16/20 02:57 09/17/20 15:05 Ultram PO 50 mg Q6H PRN Administration Pain, Moderate (4-6) Trazodone HCl 50 mg 09/16/20 02:57 Desyrel PO QHS PRN Insomnia
--- NOTE | 2020-09-19 14:22 | Consultation ---
REFERRING PHYSICIAN: Lon Puentes M.D. INDICATION: 1. Abnormal CT scan. 2. Abdominal pain. HISTORY OF PRESENT ILLNESS: The patient is a 74-year-old black male with history of hypertension and acute renal insufficiency. He is seen by GI for abnormal CT scan. The patient presented with lower extremity edema and was found to have bladder outlet obstruction. The patient had a CT scan, which raised the possibility of GI and rectal pathology. GI is consulted to aid in management. The patient reports some mild bowel changes, but denies rectal bleeding or significant abdominal pain. The patient denies recent weight loss. The patient reports he has never had a colonoscopy. Denies any upper GI symptoms including nausea, vomiting, heartburn, reflux ingestion. No other specific complaints. PAST MEDICAL HISTORY: Hypertension. MEDICATIONS: Reviewed and updated in chart. ALLERGIES: No known drug allergies. SOCIAL HISTORY: Denies alcohol, tobacco or drug abuse. FAMILY HISTORY: Negative for colon cancer, IBD or liver disease. REVIEW OF SYSTEMS: GENERAL: Reports some weakness. HEENT: No visual complaints or tinnitus. PULMONARY: No shortness of breath. No cough. No chest pain. GASTROINTESTINAL: Reports some mild bowel changes. All points of 13-point review of systems otherwise negative. PHYSICAL EXAMINATION: VITAL SIGNS: Temperature of 98.0, pulse 84, respiration 18, blood pressure 123/65. GENERAL: Fairly nourished black male in no acute distress. HEENT: Pupils equal, round and reactive. PULMONARY: Clear to auscultation bilaterally. CARDIOVASCULAR: Regular rhythm. Normal S1, S2. ABDOMEN: Positive bowel sounds, soft. SKIN: No obvious rashes. LABORATORY DATA: Pertinent for white count of 6.3, hemoglobin and hematocrit of 10.0 and 30.1, platelet count of 270. Chem-7 pertinent for BUN and creatinine of [address] scan of abdomen and pelvis without contrast performed on 09/17/2020 showed signs of severe overdistended urinary bladder with bilateral hydronephrosis secondary to bladder outlet obstruction with the possibility of thickening in the rectal area, raising the possibility of GI and rectal pathology. ASSESSMENT: A 74-year-old male presents with bladder outlet obstruction with distention of the urinary system due to possible rectal and GI related pathology. The patient has never had a colonoscopy. Management is noted below. PLAN: 1. We will review CT scan. 2. It should also be noted the patient with anemia, we will transfuse as needed. 3. PPI daily. 4. Probably colonoscopy on 09/20. JOB# [id number] ARVIND/CHERI YOUSIF
--- NOTE | 2020-09-19 16:08 | Progress Note ---
Assessment and Plan - Patient Problems (1) Acute renal failure Current Visit: Yes Status: Acute Qualifiers: Qualified Code(s): N17.9 - Acute kidney failure, unspecified Plan to address problem: Acute kidney injury secondary to obstructive uropathy. Improving following relief of obstruction with a Butt catheter. Kidney function continues to improve. Urine is now just blood-tinged. Continue to monitor electrolytes and renal function. Encourage oral hydration for now. (2) Hydronephrosis due to obstruction of bladder Current Visit: Yes Status: Acute Plan to address problem: Status post relief of obstruction by urology with a Butt catheter. Maintain Butt catheter and Flomax daily and follow-up with urology as an outpatient in 2 weeks. (3) Hypertensive urgency Current Visit: Yes Status: Acute Plan to address problem: Blood pressure has improved. Follow-up blood pressure on current medications. (4) Swelling of both lower extremities Current Visit: Yes Status: Acute Plan to address problem: Improving with postobstructive diuresis. No need for diuretic at this time. (5) Anemia in chronic kidney disease Current Visit: Yes Status: Acute Plan to address problem: Follow-up hemoglobin. Subjective Date of service: 09/19/20 Principal diagnosis: LIANNA Interval history: Patient seen lying in bed. He has no new complaints. He is feeling better. No chest pain or shortness of breath. No nausea or vomiting. Urine is clearing now just blood-tinged Objective - Exam Narrative Exam: Elderly -Portuguese male lying in bed In no acute distress HEENT: NCAT, Neck: Supple, no venous distention CVS: S1S2 RRR with no murmur, rub or gallop Chest: Clear to auscultation Abdomen: Protuberant, soft, nontender, no organomegaly, bowel sounds are present Extremities: 1-2+ pitting edema Genitourinary Butt catheter intact draining blood-tinged urine Neuro: Awake, alert no focal deficits - Vital Signs Vital signs: Vital Signs - 12hr 09/19/20 09/19/20 04:58 11:25 Temperature 99.4 F Pulse Rate 88 86 Respiratory 17 Rate Blood Pressure 135/66 O2 Sat by Pulse 96 Oximetry - Lab 09/17/20 19:36 09/19/20 09:29 Most recent lab results Calcium 8.9 mg/dL (8.4-10.2) 09/19/20 09:29 Medications & Allergies - Medications Allergies/Adverse Reactions: Allergies No Known Allergies Allergy (Unverified 12/07/13 03:13) Home Medications: Home Medications Medication Instructions Recorded Confirmed Last Taken Type Cyclobenzaprine [Flexeril] 10 mg PO TID PRN #15 tablet 12/07/13 09/16/20 Unknown Rx Prednisone [predniSONE 5 mg (6-Day 5 mg PO .TAPER #1 tab.ds.pk 12/07/13 09/16/20 Unknown Rx Pack, 21 Tabs)] traMADoL [Ultram] 50 mg PO Q4HR PRN #15 tablet 12/07/13 09/16/20 Unknown Rx Ciprofloxacin HCl [Ciprofloxacin 750 mg PO BID 7 Days #14 tablet 08/24/20 09/16/20 Unknown Rx TAB] Clindamycin [Clindamycin CAP] 300 mg PO Q6H 10 Days #40 cap 08/24/20 09/16/20 Unknown Rx Compress.stocking,Knee,Reg,Med 1 each MC DAILY #1 each 08/30/20 09/16/20 Unknown Rx [Jobst Anti-Embolism Stocking] Ketorolac [Toradol] 10 mg PO Q12HR PRN #10 tablet 08/30/20 09/16/20 Unknown Rx Active Medications: Generic Name Dose Route Start Last Admin Trade Name Samq PRN Reason Stop Dose Admin Acetaminophen 650 mg 09/16/20 02:51 Tylenol PO Q4H PRN Pain MILD(1-3)/Fever >100.5/REYES Al Hydrox/Mg Hydrox/Simethicone 30 ml 09/16/20 02:51 Alum-Mag Hydrox-Simeth 191-112-54np/5ml PO Q4H PRN Indigestion Amlodipine Besylate 10 mg 09/16/20 10:00 09/19/20 09:17 Amlodipine PO 10 mg QDAY ADDY Administration Carvedilol 6.25 mg 09/17/20 10:00 09/19/20 09:17 Coreg PO 6.25 mg BID ADDY Administration Hydralazine HCl 50 mg 09/17/20 09:00 09/19/20 09:17 Apresoline PO 50 mg Q8HR ADDY Administration Labetalol HCl 10 mg 09/16/20 02:38 Labetalol IV Q6H PRN Hypertension Lactulose 20 gm 09/16/20 02:57 Cephulac PO QHS PRN Constipation Magnesium Hydroxide 30 ml 09/16/20 02:51 Milk Of Magnesia PO Q4H PRN Constipation Metoclopramide HCl 5 mg 09/16/20 02:51 Reglan IV Q6H PRN Nausea And Vomiting Morphine Sulfate 2 mg 09/17/20 17:37 09/17/20 18:53 Morphine IV 2 mg Q4H PRN Administration Pain, Moderate (4-6) Ondansetron HCl 4 mg 09/16/20 02:51 09/17/20 18:53 Zofran IV 4 mg Q8H PRN Administration Nausea And Vomiting Sodium Chloride 10 ml 09/16/20 10:00 09/19/20 09:18 Sodium Chloride Flush Syringe 10 Ml IV 10 ml BID ADDY Administration Sodium Chloride 10 ml 09/16/20 02:51 Sodium Chloride Flush Syringe 10 Ml IV PRN PRN LINE FLUSH Tamsulosin HCl 0.4 mg 09/18/20 10:00 09/19/20 09:17 Flomax PO 0.4 mg QDAY ADDY Administration Tramadol HCl 50 mg 09/16/20 02:57 09/17/20 15:05 Ultram PO 50 mg Q6H PRN Administration Pain, Moderate (4-6) Trazodone HCl 50 mg 09/16/20 02:57 Desyrel PO QHS PRN Insomnia
--- NOTE | 2020-09-19 17:05 | Gastroenterology Progress Note ---
Assessment and Plan 1. GI: stable without complaints overnight - colonoscopy in am Subjective Date of service: 09/19/20 Principal diagnosis: LIANNA Interval history: - no problems overnight from GI standpoint Objective - Constitutional Vitals: Temp Pulse Resp BP Pulse Ox 99.4 F 86 17 135/66 96 09/19/20 04:58 09/19/20 11:25 09/19/20 04:58 09/19/20 04:58 09/19/20 04:58 General appearance: no acute distress - EENT Eyes: PERRL - Respiratory Respiratory: bilateral: CTA - Cardiovascular Rhythm: regular Heart Sounds: Present: S1 & S2 - Gastrointestinal General gastrointestinal: Present: soft, non-tender, non-distended - Labs CBC & Chem 7: 09/17/20 19:36 09/19/20 09:29 Labs: Laboratory Results - last 24 hr 09/19/20 09:29 Sodium 138 Potassium 3.7 D Chloride 103.5 Carbon Dioxide 22 Anion Gap 16 BUN 22 H Creatinine 2.0 H Estimated GFR 40 BUN/Creatinine Ratio 11 Glucose 148 H Calcium 8.9
[2020-09-19] MEDS ORDERED: POLYETHYLENE GLYCOL/ELECT SOLN 4000 ML PO ONE (18:00)
[2020-09-20] MEDS: hydrALAZINE 25 MG TAB PO SCH ×3 (05:29→21:28)
[2020-09-20 06:02] LABS: Basophils % (Auto) 0.5 % (0.0-1.8); Eosinophils # (Auto) 0.5 K/mm3 (0.0-0.4); Eosinophils % (Auto) 6.1 % (0.0-4.3); Hematocrit 24.5 % (35.5-45.6); Hemoglobin 8.4 gm/dl (11.8-15.2); Lymphocytes # (Auto) 1.9 K/mm3 (1.2-5.4); Lymphocytes % (Auto) 26.1 % (13.4-35.0); Mean Corpuscular HGB Conc 34 % (32-34); Mean Corpuscular Volume 80 fl (84-94); Monocytes # (Auto) 0.9 K/mm3 (0.0-0.8); Platelet Count 255 K/mm3 (140-440); Red Blood Count 3.07 M/mm3 (3.65-5.03); Red Cell Distribution Width 16.5 % (13.2-15.2)
[2020-09-20 06:17] LABS: Calcium 8.8 mg/dL (8.4-10.2)
--- NOTE | 2020-09-20 10:46 | Progress Note ---
Assessment and Plan Assessment and plan: 74-year-old male who presented to the emergency room with chief complaint of bilateral lower extremity swelling and difficulty with ambulation. He reports symptoms started about 2 weeks ago. He denies any shortness of breath, chest pain. He he denies any urinary retention. Here in the ER, patient was found to have elevated creatinine-5.0 and admitted for evaluation. He also found to have elevated blood pressure. He denies any history of kidney disease. Nephrology was consulted in the ER. Patient had an ultrasound of the kidneys that showed bilateral hydronephrosis. Nephrology advised Bansal placement. 09/16. RN: Place Bansal. Urology was consulted. 09/17. Abdominal CT performed showed severely distended bladder with bilateral hydronephrosis secondary to bladder outlet obstruction, and possible rectal lesion due to irregularity seen on CAT scan. Urology will place a Bansal today. GI consulted for consideration of colonoscopy. Patient had an x-ray performed on admission that showed 2.2 cm nodular density in the left midlung and he is airspace disease in the left midlung as well. He will need follow-up with a collar tailor for lung nodule work-up. 09/18. Renal function better after bansal placement. Cr 3.8. Urology following. Had bloody urine in bansal and DVT ppx has been dced. Consulted GI due to rectal wall thickening (patient has not had a colonoscopy in the past. 09/19. Urine in Bansal clearing up. Plan for colonoscopy tomorrow 09/20. Plan for colonoscopy today. Patient could not finish bowel prep. Urine clearing up. Plan to follow-up with urology at discharge. Maintain Bansal. Continue Flomax Problems --Acute renal failure Current Visit: Yes Status: Acute Qualifiers: Qualified Code(s): N17.9 - Acute kidney failure, unspecified Plan to address problem: LIANNA secondary to bladder outlet obstruction Creatinine--5>5.5>6.5>>3.8>2>1.4 Bansal draining . Urology on board. Nephrology on board Avoid nephrotoxic medications Follow-up with urology on discharge. Maintain Bansal. Continue Flomax ---Bladder outlet obstruction Current Visit: Yes Status: Acute Plan to address problem: Bansal placed with good effect Started on flomax Bansal draining bloody urine. Maintain Bansal Urology recommendation appreciated ---Hypertensive urgency Current Visit: Yes Status: Acute Plan to address problem: Patient not on home bp medicine Monitor blood pressure Continue amlodipine daily PRN labetolol q 6hrs Discussed medication compliance ---Swelling of both lower extremities Current Visit: Yes Status: Acute Plan to address problem: Elevate foot of the bed. ---Lung nodule Current Visit: Yes Status: Acute Plan to address problem: Follow-up with pulmonology in the office for monitoring --- Rectal thickening Current Visit: Yes Status: Acute Plan to address problem: Plan for colonoscopy today GI recommendations appreciated ---DVT prophylaxis Current Visit: Yes Status: Acute Plan to address problem: sqh History Interval history: Patient seen and examined at bedside this morning Plan for colonoscopy today but could not finish bowel prep Bansal draining well-urine almost clear Hospitalist Physical - Constitutional Vitals: Temp Pulse Resp BP Pulse Ox 98.0 F 88 16 127/60 96 09/20/20 08:01 09/20/20 08:01 09/20/20 08:01 09/20/20 08:01 09/20/20 08:01 General appearance: Present: other (Frail appearing elderly patient. Has bilateral pitting edema) HEART Score - HEART Score Troponin: Troponin T < 0.010 ng/mL (0.00-0.029) 09/16/20 05:15 Results - Labs CBC & Chem 7: 09/20/20 05:18 09/20/20 05:18 Labs: Laboratory Last Values WBC 7.3 K/mm3 (4.5-11.0) 09/20/20 05:18 RBC 3.07 M/mm3 (3.65-5.03) L 09/20/20 05:18 Hgb 8.4 gm/dl (11.8-15.2) L 09/20/20 05:18 Hct 24.5 % (35.5-45.6) L D 09/20/20 05:18 MCV 80 fl (84-94) L 09/20/20 05:18 MCH 27 pg (28-32) L 09/20/20 05:18 MCHC 34 % (32-34) 09/20/20 05:18 RDW 16.5 % (13.2-15.2) H 09/20/20 05:18 Plt Count 255 K/mm3 (140-440) 09/20/20 05:18 Lymph % (Auto) 26.1 % (13.4-35.0) 09/20/20 05:18 [place] % (Auto) 12.0 % (0.0-7.3) H 09/20/20 05:18 Eos % (Auto) 6.1 % (0.0-4.3) H 09/20/20 05:18 Baso % (Auto) 0.5 % (0.0-1.8) 09/20/20 05:18 Lymph # (Auto) 1.9 K/mm3 (1.2-5.4) 09/20/20 05:18 [place] # (Auto) 0.9 K/mm3 (0.0-0.8) H 09/20/20 05:18 Eos # (Auto) 0.5 K/mm3 (0.0-0.4) H 09/20/20 05:18 Baso # (Auto) 0.0 K/mm3 (0.0-0.1) 09/20/20 05:18 Seg Neutrophils % 55.3 % (40.0-70.0) 09/20/20 05:18 Seg Neutrophils # 4.1 K/mm3 (1.8-7.7) 09/20/20 05:18 Sodium 139 mmol/L (137-145) 09/20/20 05:18 Potassium 3.7 mmol/L (3.6-5.0) 09/20/20 05:18 Chloride 104.1 mmol/L (98-107) 09/20/20 05:18 Carbon Dioxide 28 mmol/L (22-30) 09/20/20 05:18 Anion Gap 11 mmol/L 09/20/20 05:18 BUN 15 mg/dL (9-20) 09/20/20 05:18 Creatinine 1.4 mg/dL (0.8-1.3) H 09/20/20 05:18 Estimated GFR 60 ml/min 09/20/20 05:18 BUN/Creatinine Ratio 11 % 09/20/20 05:18 Glucose 101 mg/dL (75-100) H 09/20/20 05:18 Hemoglobin A1c 5.6 % (4-6) 09/16/20 05:15 Calcium 8.8 mg/dL (8.4-10.2) 09/20/20 05:18 Phosphorus 2.90 mg/dL (2.5-4.5) 09/20/20 05:18 Magnesium 1.40 mg/dL (1.7-2.3) L 09/20/20 05:18 Total Bilirubin 0.50 mg/dL (0.1-1.2) 09/16/20 05:15 Direct Bilirubin < 0.2 mg/dL (0-0.2) 09/16/20 05:15 Indirect Bilirubin 0.3 mg/dL 09/16/20 05:15 AST 24 units/L (5-40) 09/16/20 05:15 ALT 22 units/L (7-56) 09/16/20 05:15 Alkaline Phosphatase 102 units/L (35-129) 09/16/20 05:15 Troponin T < 0.010 ng/mL (0.00-0.029) 09/16/20 05:15 NT-Pro-B Natriuret Pep 544.7 pg/mL (0-900) 09/15/20 22:41 Total Protein 6.9 g/dL (6.3-8.2) 09/16/20 05:15 Albumin 3.5 g/dL (3.9-5) L 09/16/20 05:15 Albumin/Globulin Ratio 1.0 % 09/16/20 05:15 Triglycerides 58 mg/dL (2-149) 09/16/20 05:15 Cholesterol 139 mg/dL (50-199) 09/16/20 05:15 LDL Cholesterol Direct 72 mg/dL (50-130) 09/16/20 05:15 HDL Cholesterol 56 mg/dL (40-59) 09/16/20 05:15 Cholesterol/HDL Ratio 2.48 % 09/16/20 05:15 Lipase 10 units/L (13-60) L 09/15/20 22:41 Urine Color Straw (Yellow) 09/15/20 Unknown Urine Turbidity Clear (Clear) 09/15/20 Unknown Urine pH 5.0 (5.0-7.0) 09/15/20 Unknown Ur Specific Pierce 1.010 (1.003-1.030) 09/15/20 Unknown Urine Protein <15 mg/dl mg/dL (Negative) 09/15/20 Unknown Urine Glucose (UA) Neg mg/dL (Negative) 09/15/20 Unknown Urine Ketones Neg mg/dL (Negative) 09/15/20 Unknown Urine Blood Mod (Negative) 09/15/20 Unknown Urine Nitrite Neg (Negative) 09/15/20 Unknown Urine Bilirubin Neg (Negative) 09/15/20 Unknown Urine Urobilinogen < 2.0 mg/dL (<2.0) 09/15/20 Unknown Ur Leukocyte Esterase Neg (Negative) 09/15/20 Unknown Urine WBC (Auto) 5.0 /HPF (0.0-6.0) 09/15/20 Unknown Urine RBC (Auto) 27.0 /HPF (0.0-6.0) 09/15/20 Unknown U Epithel Cells (Auto) < 1.0 /HPF (0-13.0) 09/15/20 Unknown Urine Bacteria (Auto) 1+ /HPF (Negative) 09/15/20 Unknown Urine Mucus Few /HPF 09/15/20 Unknown - Diagnostic Impressions Diagnostic Impressions: Echocardiogram 09/16/20 03:02 Transthoracic Echocardiogram Indication: Leg edema BP: 215/108 HR: 67 Conclusions *BORDERLINE LAE *MILD LVH *EF 65-70% *TRIVIAL PERICARDIAL EFFUSION Findings Left Ventricle: The left ventricular chamber size is normal. Mild concentric left ventricular hypertrophy is observed. Global left ventricular wall motion and contractility are within normal limits. Global left ventricular systolic function is normal. The estimated ejection fraction is 65-70%. There is an E to A reversal in the mitral valve flow pattern suggestive of diastolic dysfunction. Left Atrium: The left atrial chamber size is normal. Right Ventricle: The right ventricular cavity size is normal. The right ventricular global systolic function is normal. Right Atrium: The right atrial cavity size is normal. Aortic Valve: Mild aortic leaflet calcification is visualized. There is trace of aortic regurgitation. Mitral Valve: The mitral valve leaflets are mildly thickened. There is mild mitral regurgitation. Tricuspid Valve: The tricuspid valve leaflets are normal. There is trace tricuspid regurgitation. The right ventricular systolic pressure is calculated at 28 mmHg. Pulmonic Valve: There is no evidence of pulmonic valve thickening. There is mild pulmonic regurgitation. Pericardium: A trivial pericardial effusion is visualized. The pericardial effusion is seen adjacent to the right ventricle. Aorta: The aorta appears normal. Venous: The inferior vena cava appears normal in size. There is a greater than 50% respiratory change in the inferior vena cava dimension. Measurements Chambers 2D Name Value Normal Range IVSd (2D) 0.84 cm (0.6 - 1.1) LVPWd (2D) 0.98 cm (0.6 - 1.1) LVIDd (2D) 5.05 cm (3.7 - 5.6) LVIDs (2D) 3.24 cm (2 - 3.8) LV FS (2D) 35.96 % - EF Teichholz (2D) 65.27 % - Ao root diameter (2D) 2.77 cm (2 - 3.7) Volumes/Mass Name Value Normal Range LA ESV SP 4CH (A/L) 22.18 ml - LA ESV SP 2CH (A/L) 27.35 ml - LA ESV BP (A/L) 24.68 ml - LA ESV BP (A/L) index 12.85 ml/m2 - LA ESV SP 4CH (MOD) 20.35 ml - LA ESV SP 2CH (MOD) 26.81 ml - LA ESV BP (MOD) 22.94 ml - LA ESV BP (MOD) index 11.95 ml/m2 - Diastolic/Systolic Function Name Value Normal Range MV E-wave Vmax 0.76 m/sec - MV deceleration time 237.19 msec - MV A-wave Vmax 0.88 m/sec - MV E:A ratio 0.86 ratio - Aortic Valve Name Value Normal Range AV Vmax 1.47 m/sec - AV VTI 31.71 cm - AV peak gradient 8.7 mmHg - AV mean gradient 4.25 mmHg - LVOT diameter 2 cm - LVOT Vmax 1.06 m/sec - LVOT VTI 23.5 cm - LVOT peak gradient 4.49 mmHg - LVOT mean gradient 2.59 mmHg - SV LVOT 73.92 ml - KATLIN (continuity Vmax) 2.26 cm2 - KATLIN (continuity VTI) 2.33 cm2 - AR PHT 1006.69 msec - AR peak gradient 26.5 mmHg - Mitral Valve Name Value Normal Range MR Vmax 5.15 m/sec - Tricuspid Valve Name Value Normal Range TR Vmax 2.51 m/sec - TR peak gradient 25 mmHg - RAP 3 mmHg - RVSP 28 mmHg - IVC diameter 1.19 cm (1.2 - 2.3) Pulmonic Valve/Qp:Qs Name Value Normal Range PV Vmax 0.87 m/sec - PV peak gradient 3.01 mmHg - DC end-diastolic Vmax 1.34 m/sec - PV acceleration time 91.34 msec - Bansal/IV: Voiding Method Indwelling Catheter IV Catheter Type [Right INT / Saline Lock Forearm] Active Medications - Current Medications Current Medications: Generic Name Dose Route Start Last Admin Trade Name Freq PRN Reason Stop Dose Admin Acetaminophen 650 mg 09/16/20 02:51 Tylenol PO Q4H PRN Pain MILD(1-3)/Fever >100.5/REYES Al Hydrox/Mg Hydrox/Simethicone 30 ml 09/16/20 02:51 Alum-Mag Hydrox-Simeth [phone]/5ml PO Q4H PRN Indigestion Amlodipine Besylate 10 mg 09/16/20 10:00 09/19/20 09:17 Amlodipine PO 10 mg QDAY ADDY Administration Carvedilol 6.25 mg 09/17/20 10:00 09/19/20 21:21 Coreg PO 6.25 mg BID ADDY Administration Hydralazine HCl 50 mg 09/17/20 09:00 09/20/20 05:29 Apresoline PO 50 mg Q8HR ADDY Administration Labetalol HCl 10 mg 09/16/20 02:38 Labetalol IV Q6H PRN Hypertension Lactulose 20 gm 09/16/20 02:57 Cephulac PO QHS PRN Constipation Magnesium Hydroxide 30 ml 09/16/20 02:51 Milk Of Magnesia PO Q4H PRN Constipation Metoclopramide HCl 5 mg 09/16/20 02:51 Reglan IV Q6H PRN Nausea And Vomiting Morphine Sulfate 2 mg 09/17/20 17:37 09/17/20 18:53 Morphine IV 2 mg Q4H PRN Administration Pain, Moderate (4-6) Ondansetron HCl 4 mg 09/16/20 02:51 09/17/20 18:53 Zofran IV 4 mg Q8H PRN Administration Nausea And Vomiting Sodium Chloride 10 ml 09/16/20 10:00 09/19/20 21:22 Sodium Chloride Flush Syringe 10 Ml IV 10 ml BID ADDY Administration Sodium Chloride 10 ml 09/16/20 02:51 Sodium Chloride Flush Syringe 10 Ml IV PRN PRN LINE FLUSH Tamsulosin HCl 0.4 mg 09/18/20 10:00 09/19/20 09:17 Flomax PO 0.4 mg QDAY ADDY Administration Tramadol HCl 50 mg 09/16/20 02:57 09/17/20 15:05 Ultram PO 50 mg Q6H PRN Administration Pain, Moderate (4-6) Trazodone HCl 50 mg 09/16/20 02:57 Desyrel PO QHS PRN Insomnia
[2020-09-20] MEDS ORDERED: SODIUM CHLORIDE 0.9% 1000 ML 1,000 ML IV SCH (13:45)
[2020-09-20] MEDS ORDERED: SODIUM CHLORIDE 0.9% 1000 ML 1,000 ML ONE (14:03)
[2020-09-20] MEDS ORDERED: propofoL 200 MG/20 ML VIAL IV ONE (15:52)
--- NOTE | 2020-09-20 15:53 | Anesthesia Consultation ---
Anesthesia Consult and Med Hx Date of service: 09/20/20 - Airway Anesthetic Teeth Evaluation: Poor ROM Head & Neck: Adequate Mental/Hyoid Distance: Adequate Mallampati Class: Class III Intubation Access Assessment: Possibly Difficult - Pulmonary Exam CTA: Yes - Cardiac Exam Cardiac Exam: RRR - Pre-Operative Health Status ASA Pre-Surgery Classification: ASA3 Proposed Anesthetic Plan: MAC - Pulmonary Hx Smoking: No Hx Respiratory Symptoms: No - Cardiovascular System Hx Hypertension: Yes (started on antihypertensives this admission) Hx Heart Attack/AMI: No Hx Percutaneous Transluminal Coronary Angioplasty (PTCA): No Hx Cardia Arrhythmia: No - Central Nervous System CVA: No - Endocrine Hx Renal Disease: Yes (acute renal failure this admission 2/2 obstruction; improved) Hx Liver Disease: No Hx Insulin Dependent Diabetes: No Hx Non-Insulin Dependent Diabetes: No Hx Thyroid Disease: No - Hematic Hx Anemia: Yes - Other Systems Hx Obesity: No - Additional Comments Anesthesia Medical History Comments: No hx anesthetic complications. Concern for rectal mass as cause of bladder outlet obstruction. Has not followed with PCP for 30yrs.
--- NOTE | 2020-09-20 15:53 | Anesthesia Day of Surgery ---
Anesthesia Day of Surgery - Day of Surgery Patient Examined: Yes Patient H&P Reviewed: Yes Patient is NPO: Yes
--- NOTE | 2020-09-20 16:23 | Post Operative Note ---
Pre-op diagnosis: abnormal ct scan Post-op diagnosis: same Findings: Incomplete colon: space occupying mass anal verge to 15 cm, able to pass (cold bx's) - incomplete procedure to distal transverse due to poor prep - negative other Procedure: Incomplete colonoscopy Anesthesia: MAC Surgeon: MALENA MANCUSO Estimated blood loss: none Pathology: list Specimen disposition: to lab Condition: stable Disposition: floor
--- NOTE | 2020-09-20 16:41 | Post Anesthesia Evaluation ---
- Post Anesthesia Evaluation Patient Participated: Yes Airway Patent: Yes Stable Respiratory Function: Yes Nausea/Vomiting: No Temp > 96.8F: Yes Pain Manageable: Yes Adequeate Hydration: Yes Anesthesia Complications: No
--- NOTE | 2020-09-20 20:07 | Operative Report ---
PROCEDURE: Incomplete colonoscopy. INDICATIONS: 1. Anemia. 2. Abnormal CT scan. MEDICATIONS: Propofol per SAFETY SITTER. COMPLICATIONS: None. DESCRIPTION OF PROCEDURE: The patient brought to procedure suite. The patient had the procedure discussed with him at length. All risks, complications, and benefits discussed after which the patient signed for the procedure performed. The patient was placed in the left lateral decubitus position. Rectal exam performed prior to insertion of the scope. After adequate sedation medication as above, scope inserted in the rectum and brought to the level of the distal transverse. No retroflexion view was performed. The patient's vital signs remained stable for the procedure. Prep quality for this procedure was poor leading to incomplete colonoscopy. FINDINGS: This was an incomplete colonoscopy due to poor prep and procedure was terminated at the distal transverse colon. There was noted to be a large space-occupying mass extending just above the anal verge to approximately 15 cm from the anal verge. This was approximately 50% circumferential, but was able to be passed with the scope, concerning for malignancy. Multiple biopsies were taken and sent to pathology. There were no mass lesions or polyps noted in the visualized colon area to the distal transverse. Again, the procedure was terminated due to poor prep and unable to complete. No retroflexion views performed. The patient's vital signs remained stable during the procedure. IMPRESSION: 1. Poor prep for the procedure terminated on the distal transverse. 2. Space occupying rectal masses described above from the anal verge to 15 cm. Multiple biopsies taken. 3. Otherwise, no significant findings. RECOMMENDATIONS: 1. Follow up biopsy results. 2. CT with contrast when renal function stable. 3. Surgery consult. 4. We will follow for now. JOB# [id number] CAB/NTS
[2020-09-20] MEDS: carvediloL 6.25 MG TAB PO SCH ×2 (21:25→21:28)
[2020-09-20] MEDS: amLODIPine 10 MG TAB PO SCH (21:28)
[2020-09-20] MEDS: TAMSULOSIN 0.4 MG CAP PO SCH (21:31)
[2020-09-21] MEDS: hydrALAZINE 25 MG TAB PO SCH ×2 (05:17→13:40)
[2020-09-21 05:50] LABS: Basophils % (Auto) 0.5 % (0.0-1.8); Eosinophils # (Auto) 0.2 K/mm3 (0.0-0.4); Eosinophils % (Auto) 2.5 % (0.0-4.3); Hematocrit 24.2 % (35.5-45.6); Hemoglobin 8.4 gm/dl (11.8-15.2); Lymphocytes # (Auto) 1.9 K/mm3 (1.2-5.4); Lymphocytes % (Auto) 20.1 % (13.4-35.0); Mean Corpuscular HGB Conc 35 % (32-34); Mean Corpuscular Volume 79 fl (84-94); Monocytes # (Auto) 1.1 K/mm3 (0.0-0.8); Monocytes % (Auto) 11.6 % (0.0-7.3); Platelet Count 296 K/mm3 (140-440); Red Blood Count 3.06 M/mm3 (3.65-5.03); Red Cell Distribution Width 16.3 % (13.2-15.2)
[2020-09-21 06:18] LABS: BUN/Creatinine Ratio 13; Blood Urea Nitrogen 16 mg/dL (9-20); Calcium 8.9 mg/dL (8.4-10.2); Hemolysis Index 0
--- NOTE | 2020-09-21 09:37 | Progress Note ---
Assessment and Plan Assessment and plan: 74-year-old male who presented to the emergency room with chief complaint of bilateral lower extremity swelling and difficulty with ambulation. He reports symptoms started about 2 weeks ago. He denies any shortness of breath, chest pain. He he denies any urinary retention. Here in the ER, patient was found to have elevated creatinine-5.0 and admitted for evaluation. He also found to have elevated blood pressure. He denies any history of kidney disease. Nephrology was consulted in the ER. Patient had an ultrasound of the kidneys that showed bilateral hydronephrosis. Nephrology advised Gardner placement. 09/16. RN: Place Gardner. Urology was consulted. 09/17. Abdominal CT performed showed severely distended bladder with bilateral hydronephrosis secondary to bladder outlet obstruction, and possible rectal lesion due to irregularity seen on CAT scan. Urology will place a Gardner today. GI consulted for consideration of colonoscopy. Patient had an x-ray performed on admission that showed 2.2 cm nodular density in the left midlung and he is airspace disease in the left midlung as well. He will need follow-up with a design quality engineer for lung nodule work-up. 09/18. Renal function better after gardner placement. Cr 3.8. Urology following. Had bloody urine in gardner and DVT ppx has been dced. Consulted GI due to rectal wall thickening (patient has not had a colonoscopy in the past. 09/19. Urine in Gardner clearing up. Plan for colonoscopy tomorrow 09/20. Plan for colonoscopy today. Patient could not finish bowel prep. Urine clearing up. Plan to follow-up with urology at discharge. Maintain Gardner. Continue Flomax Problems --Acute renal failure Current Visit: Yes Status: Acute Qualifiers: Qualified Code(s): N17.9 - Acute kidney failure, unspecified Plan to address problem: LIANNA secondary to bladder outlet obstruction Creatinine--5>5.5>6.5>>3.8>2>1.4 Gardner draining . Urology on board. Nephrology on board Avoid nephrotoxic medications Follow-up with urology on discharge. Maintain Gardner. Continue Flomax ---Bladder outlet obstruction Current Visit: Yes Status: Acute Plan to address problem: Gardner placed with good effect Started on flomax Gardner draining bloody urine. Maintain Gardner Urology recommendation appreciated ---Hypertensive urgency Current Visit: Yes Status: Acute Plan to address problem: Patient not on home bp medicine Monitor blood pressure Continue amlodipine daily PRN labetolol q 6hrs Discussed medication compliance ---Swelling of both lower extremities Current Visit: Yes Status: Acute Plan to address problem: Elevate foot of the bed. ---Lung nodule Current Visit: Yes Status: Acute Plan to address problem: Follow-up with pulmonology in the office for monitoring --- Rectal thickening Current Visit: Yes Status: Acute Plan to address problem: Had colonoscopy yesterday and found 15 cm rectal mass, biopsy was taken and surgery was consulted ---DVT prophylaxis Current Visit: Yes Status: Acute Plan to address problem: sq 09/21/2020; colonoscopy was done and found 15 cm rectal mass, biopsy was taken and surgery was consulted. Patient was seen by urology and will be discharged with GARDNER CATHETER catheter in place. History Interval history: No nursing issues overnight Patient was alert and oriented and does not have any complaints Hospitalist Physical - Physical exam Narrative exam: Not in cardiopulmonary distress. The patient appeared well nourished and normally developed. Vital signs as documented. Head exam is unremarkable. No scleral icterus . Neck is without jugular venous distension, thyromegaly, or carotid bruits. Lungs are clear to auscultation. Cardiac exam reveals regular rate and Rhythm. Abdominal exam reveals normal bowel sounds, nontender, no organomegaly. Extremities are nonedematous and both femoral and pedal pulses are normal. 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 No focal weakness. - Constitutional Vitals: Temp Pulse Resp BP Pulse Ox 100.9 F H 86 18 128/68 97 09/21/20 03:39 09/21/20 05:17 09/21/20 03:39 09/21/20 03:39 09/21/20 03:39 General appearance: Present: other (Frail appearing elderly patient. Has bila teral pitting edema) HEART Score - HEART Score Troponin: Troponin T < 0.010 ng/mL (0.00-0.029) 09/16/20 05:15 Results - Labs CBC & Chem 7: 09/21/20 05:25 09/21/20 05:25 Labs: Laboratory Last Values WBC 9.5 K/mm3 (4.5-11.0) 09/21/20 05:25 RBC 3.06 M/mm3 (3.65-5.03) L 09/21/20 05:25 Hgb 8.4 gm/dl (11.8-15.2) L 09/21/20 05:25 Hct 24.2 % (35.5-45.6) L 09/21/20 05:25 MCV 79 fl (84-94) L 09/21/20 05:25 MCH 28 pg (28-32) 09/21/20 05:25 MCHC 35 % (32-34) H 09/21/20 05:25 RDW 16.3 % (13.2-15.2) H 09/21/20 05:25 Plt Count 296 K/mm3 (140-440) 09/21/20 05:25 Lymph % (Auto) 20.1 % (13.4-35.0) 09/21/20 05:25 [place] % (Auto) 11.6 % (0.0-7.3) H 09/21/20 05:25 Eos % (Auto) 2.5 % (0.0-4.3) 09/21/20 05:25 Baso % (Auto) 0.5 % (0.0-1.8) 09/21/20 05:25 Lymph # (Auto) 1.9 K/mm3 (1.2-5.4) 09/21/20 05:25 [place] # (Auto) 1.1 K/mm3 (0.0-0.8) H 09/21/20 05:25 Eos # (Auto) 0.2 K/mm3 (0.0-0.4) 09/21/20 05:25 Baso # (Auto) 0.0 K/mm3 (0.0-0.1) 09/21/20 05:25 Seg Neutrophils % 65.3 % (40.0-70.0) 09/21/20 05:25 Seg Neutrophils # 6.2 K/mm3 (1.8-7.7) 09/21/20 05:25 Sodium 137 mmol/L (137-145) 09/21/20 05:25 Potassium 3.6 mmol/L (3.6-5.0) 09/21/20 05:25 Chloride 101.6 mmol/L (98-107) 09/21/20 05:25 Carbon Dioxide 22 mmol/L (22-30) 09/21/20 05:25 Anion Gap 17 mmol/L 09/21/20 05:25 BUN 16 mg/dL (9-20) 09/21/20 05:25 Creatinine 1.2 mg/dL (0.8-1.3) 09/21/20 05:25 Estimated GFR > 60 ml/min 09/21/20 05:25 BUN/Creatinine Ratio 13 % 09/21/20 05:25 Glucose 101 mg/dL (75-100) H 09/21/20 05:25 Hemoglobin A1c 5.6 % (4-6) 09/16/20 05:15 Calcium 8.9 mg/dL (8.4-10.2) 09/21/20 05:25 Phosphorus 2.90 mg/dL (2.5-4.5) 09/20/20 05:18 Magnesium 1.40 mg/dL (1.7-2.3) L 09/20/20 05:18 Total Bilirubin 0.50 mg/dL (0.1-1.2) 09/16/20 05:15 Direct Bilirubin < 0.2 mg/dL (0-0.2) 09/16/20 05:15 Indirect Bilirubin 0.3 mg/dL 09/16/20 05:15 AST 24 units/L (5-40) 09/16/20 05:15 ALT 22 units/L (7-56) 09/16/20 05:15 Alkaline Phosphatase 102 units/L (35-129) 09/16/20 05:15 Troponin T < 0.010 ng/mL (0.00-0.029) 09/16/20 05:15 NT-Pro-B Natriuret Pep 544.7 pg/mL (0-900) 09/15/20 22:41 Total Protein 6.9 g/dL (6.3-8.2) 09/16/20 05:15 Albumin 3.5 g/dL (3.9-5) L 09/16/20 05:15 Albumin/Globulin Ratio 1.0 % 09/16/20 05:15 Triglycerides 58 mg/dL (2-149) 09/16/20 05:15 Cholesterol 139 mg/dL (50-199) 09/16/20 05:15 LDL Cholesterol Direct 72 mg/dL (50-130) 09/16/20 05:15 HDL Cholesterol 56 mg/dL (40-59) 09/16/20 05:15 Cholesterol/HDL Ratio 2.48 % 09/16/20 05:15 Lipase 10 units/L (13-60) L 09/15/20 22:41 Urine Color Straw (Yellow) 09/15/20 Unknown Urine Turbidity Clear (Clear) 09/15/20 Unknown Urine pH 5.0 (5.0-7.0) 09/15/20 Unknown Ur Specific [place] 1.010 (1.003-1.030) 09/15/20 Unknown Urine Protein <15 mg/dl mg/dL (Negative) 09/15/20 Unknown Urine Glucose (UA) Neg mg/dL (Negative) 09/15/20 Unknown Urine Ketones Neg mg/dL (Negative) 09/15/20 Unknown Urine Blood Mod (Negative) 09/15/20 Unknown Urine Nitrite Neg (Negative) 09/15/20 Unknown Urine Bilirubin Neg (Negative) 09/15/20 Unknown Urine Urobilinogen < 2.0 mg/dL (<2.0) 09/15/20 Unknown Ur Leukocyte Esterase Neg (Negative) 09/15/20 Unknown Urine WBC (Auto) 5.0 /HPF (0.0-6.0) 09/15/20 Unknown Urine RBC (Auto) 27.0 /HPF (0.0-6.0) 09/15/20 Unknown U Epithel Cells (Auto) < 1.0 /HPF (0-13.0) 09/15/20 Unknown Urine Bacteria (Auto) 1+ /HPF (Negative) 09/15/20 Unknown Urine Mucus Few /HPF 09/15/20 Unknown - Diagnostic Impressions Diagnostic Impressions: Echocardiogram 09/16/20 03:02 Transthoracic Echocardiogram Indication: Leg edema BP: 215/108 HR: 67 Conclusions *BORDERLINE LAE *MILD LVH *EF 65-70% *TRIVIAL PERICARDIAL EFFUSION Findings Left Ventricle: The left ventricular chamber size is normal. Mild concentric left ventricular hypertrophy is observed. Global left ventricular wall motion and contractility are within normal limits. Global left ventricular systolic function is normal. The estimated ejection fraction is 65-70%. There is an E to A reversal in the mitral valve flow pattern suggestive of diastolic dysfunction. Left Atrium: The left atrial chamber size is normal. Right Ventricle: The right ventricular cavity size is normal. The right ventricular global systolic function is normal. Right Atrium: The right atrial cavity size is normal. Aortic Valve: Mild aortic leaflet calcification is visualized. There is trace of aortic regurgitation. Mitral Valve: The mitral valve leaflets are mildly thickened. There is mild mitral regurgitation. Tricuspid Valve: The tricuspid valve leaflets are normal. There is trace tricuspid regurgitation. The right ventricular systolic pressure is calculated at 28 mmHg. Pulmonic Valve: There is no evidence of pulmonic valve thickening. There is mild pulmonic regurgitation. Pericardium: A trivial pericardial effusion is visualized. The pericardial effusion is seen adjacent to the right ventricle. Aorta: The aorta appears normal. Venous: The inferior vena cava appears normal in size. There is a greater than 50% respiratory change in the inferior vena cava dimension. Measurements Chambers 2D Name Value Normal Range IVSd (2D) 0.84 cm (0.6 - 1.1) LVPWd (2D) 0.98 cm (0.6 - 1.1) LVIDd (2D) 5.05 cm (3.7 - 5.6) LVIDs (2D) 3.24 cm (2 - 3.8) LV FS (2D) 35.96 % - EF Teichholz (2D) 65.27 % - Ao root diameter (2D) 2.77 cm (2 - 3.7) Volumes/Mass Name Value Normal Range LA ESV SP 4CH (A/L) 22.18 ml - LA ESV SP 2CH (A/L) 27.35 ml - LA ESV BP (A/L) 24.68 ml - LA ESV BP (A/L) index 12.85 ml/m2 - LA ESV SP 4CH (MOD) 20.35 ml - LA ESV SP 2CH (MOD) 26.81 ml - LA ESV BP (MOD) 22.94 ml - LA ESV BP (MOD) index 11.95 ml/m2 - Diastolic/Systolic Function Name Value Normal Range MV E-wave Vmax 0.76 m/sec - MV deceleration time 237.19 msec - MV A-wave Vmax 0.88 m/sec - MV E:A ratio 0.86 ratio - Aortic Valve Name Value Normal Range AV Vmax 1.47 m/sec - AV VTI 31.71 cm - AV peak gradient 8.7 mmHg - AV mean gradient 4.25 mmHg - LVOT diameter 2 cm - LVOT Vmax 1.06 m/sec - LVOT VTI 23.5 cm - LVOT peak gradient 4.49 mmHg - LVOT mean gradient 2.59 mmHg - SV LVOT 73.92 ml - KATLIN (continuity Vmax) 2.26 cm2 - KATLIN (continuity VTI) 2.33 cm2 - AR PHT 1006.69 msec - AR peak gradient 26.5 mmHg - Mitral Valve Name Value Normal Range MR Vmax 5.15 m/sec - Tricuspid Valve Name Value Normal Range TR Vmax 2.51 m/sec - TR peak gradient 25 mmHg - RAP 3 mmHg - RVSP 28 mmHg - IVC diameter 1.19 cm (1.2 - 2.3) Pulmonic Valve/Qp:Qs Name Value Normal Range PV Vmax 0.87 m/sec - PV peak gradient 3.01 mmHg - MI end-diastolic Vmax 1.34 m/sec - PV acceleration time 91.34 msec - Gardner/IV: Voiding Method Toilet IV Catheter Type [Left Forearm INT / Saline Lock ] IV Catheter Type [Right INT / Saline Lock Forearm] Active Medications - Current Medications Current Medications: Generic Name Dose Route Start Last Admin Trade Name Freq PRN Reason Stop Dose Admin Acetaminophen 650 mg 09/16/20 02:51 Tylenol PO Q4H PRN Pain MILD(1-3)/Fever >100.5/REYES Al Hydrox/Mg Hydrox/Simethicone 30 ml 09/16/20 02:51 Alum-Mag Hydrox-Simeth [phone]/5ml PO Q4H PRN Indigestion Amlodipine Besylate 10 mg 09/16/20 10:00 09/20/20 21:28 Amlodipine PO Not Given QDAY ADDY Carvedilol 6.25 mg 09/17/20 10:00 09/20/20 21:28 Coreg PO Not Given BID ADDY Hydralazine HCl 50 mg 09/17/20 09:00 09/21/20 05:17 Apresoline PO 50 mg Q8HR ADDY Administration Sodium Chloride 1,000 mls @ 50 mls/hr 09/20/20 13:45 Nacl 0.9% 1000 Ml IV DIRECT ADDY Labetalol HCl 10 mg 09/16/20 02:38 Labetalol IV Q6H PRN Hypertension Lactulose 20 gm 09/16/20 02:57 Cephulac PO QHS PRN Constipation Magnesium Hydroxide 30 ml 09/16/20 02:51 Milk Of Magnesia PO Q4H PRN Constipation Metoclopramide HCl 5 mg 09/16/20 02:51 Reglan IV Q6H PRN Nausea And Vomiting Morphine Sulfate 2 mg 09/17/20 17:37 09/17/20 18:53 Morphine IV 2 mg Q4H PRN Administration Pain, Moderate (4-6) Ondansetron HCl 4 mg 09/16/20 02:51 09/17/20 18:53 Zofran IV 4 mg Q8H PRN Administration Nausea And Vomiting Sodium Chloride 10 ml 09/16/20 10:00 09/20/20 21:26 Sodium Chloride Flush Syringe 10 Ml IV 10 ml BID ADDY Administration Sodium Chloride 10 ml 09/16/20 02:51 Sodium Chloride Flush Syringe 10 Ml IV PRN PRN LINE FLUSH Tamsulosin HCl 0.4 mg 09/18/20 10:00 09/20/20 21:31 Flomax PO 0.4 mg QDAY ADYD Administration Tramadol HCl 50 mg 09/16/20 02:57 09/17/20 15:05 Ultram PO 50 mg Q6H PRN Administration Pain, Moderate (4-6) Trazodone HCl 50 mg 09/16/20 02:57 Desyrel PO QHS PRN Insomnia
[2020-09-21 10:52] VITALS: BP 116/58
[2020-09-21] MEDS: carvediloL 6.25 MG TAB PO SCH (10:53)
[2020-09-21] MEDS: amLODIPine 10 MG TAB PO SCH (10:53)
[2020-09-21] MEDS: TAMSULOSIN 0.4 MG CAP PO SCH (10:54)
--- NOTE | 2020-09-21 14:08 | Gastroenterology Progress Note ---
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, bx's pending - will need ct abd/pelvis w/ contrast when renal status stable - surgery and Oncology input, per primary team (surgery consulted) - follow labs - otherwise ok to dc from Gi standpoint when cleared by other consultants as rectal lesion management as outpt - will follow for now Subjective Date of service: 09/21/20 Principal diagnosis: LIANNA Interval history: - no specific complaints from GI standpoint overnight Objective - Constitutional Vitals: Temp Pulse Resp BP Pulse Ox 98.8 F 95 H 18 116/58 98 09/21/20 08:31 09/21/20 13:40 09/21/20 08:31 09/21/20 13:40 09/21/20 08:31 General appearance: no acute distress - EENT Eyes: PERRL - Respiratory Respiratory: bilateral: CTA - Cardiovascular Rhythm: regular Heart Sounds: Present: S1 & S2 - Gastrointestinal General gastrointestinal: Present: soft, non-tender, non-distended - Labs CBC & Chem 7: 09/21/20 05:25 09/21/20 05:25 Labs: Laboratory Results - last 24 hr 09/21/20 09/21/20 05:25 05:25 WBC 9.5 RBC 3.06 L Hgb 8.4 L Hct 24.2 L MCV 79 L MCH 28 MCHC 35 H RDW 16.3 H Plt Count 296 Lymph % (Auto) 20.1 [place] % (Auto) 11.6 H Eos % (Auto) 2.5 Baso % (Auto) 0.5 Lymph # (Auto) 1.9 [place] # (Auto) 1.1 H Eos # (Auto) 0.2 Baso # (Auto) 0.0 Seg Neutrophils % 65.3 Seg Neutrophils # 6.2 Sodium 137 Potassium 3.6 Chloride 101.6 Carbon Dioxide 22 Anion Gap 17 BUN 16 Creatinine 1.2 Estimated GFR > 60 BUN/Creatinine Ratio 13 Glucose 101 H Calcium 8.9
--- NOTE | 2020-09-21 16:34 | Consultation ---
History of Present Illness Consult date: 09/22/20 Chief complaint: rectal mass - History of present illness History of present illness: 74-year-old male with a history of hypertension and renal insufficiency who presented to the emergency room with lower extremity edema. A CT scan was performed and he was found to have bladder outlet obstruction with abnormality at the rectal area concerning for a mass. GI was consulted and the patient underwent a colonoscopy. Colonoscopy showed a rectal mass extending from the anal verge to approximately 15 cm in the rectum. The patient denies any abdominal pain, nausea, vomiting, rectal bleeding. He states his bowel movements have been normal. He has never had a colonoscopy prior to the one performed during this hospitalization. Patient denies recent weight loss. Past History Past Medical History: hypertension, renal failure, other (acute kidney injury) Past Surgical History: No surgical history Social history: no significant social history Family history: no significant family history Medications and Allergies Allergies Allergy/AdvReac Type Severity Reaction Status Date / Time No Known Allergies Allergy Unverified 12/07/13 03:13 Home Medications Medication Instructions Recorded Confirmed Last Taken Type Cyclobenzaprine [Flexeril 10 MG 10 mg PO TID PRN #15 tablet 12/07/13 09/16/20 Unknown Rx TAB] traMADoL [Ultram 50 MG tab] 50 mg PO Q4HR PRN #15 tablet 12/07/13 09/16/20 Unknown Rx Compress.stocking,Knee,Reg,Med 1 each MC DAILY #1 each 08/30/20 09/16/20 Unknown Rx [Jobst Anti-Embolism Stocking] Tamsulosin [Flomax] 0.4 mg PO QDAY #30 capsule 09/21/20 Unknown Rx amLODIPine 10 mg PO QDAY #30 tablet 09/21/20 Unknown Rx carvediloL [Coreg] 6.25 mg PO BID #60 tablet 09/21/20 Unknown Rx hydrALAZINE [Apresoline TAB] 50 mg PO Q8HR #180 tab 09/21/20 Unknown Rx Active Meds: Active Medications Acetaminophen (Tylenol) 650 mg PO Q4H PRN PRN Reason: Pain MILD(1-3)/Fever >100.5/REYES Al Hydrox/Mg Hydrox/Simethicone (Alum-Mag Hydrox-Simeth [id number]/5ml) 30 ml PO Q4H PRN PRN Reason: Indigestion Amlodipine Besylate (Amlodipine) 10 mg PO QDAY [facility] Last Admin: 09/21/20 10:53 Dose: 10 mg Documented by: Carvedilol (Coreg) 6.25 mg PO BID [facility] Last Admin: 09/21/20 10:53 Dose: 6.25 mg Documented by: Hydralazine HCl (Apresoline) 50 mg PO Q8HR [facility] Last Admin: 09/21/20 13:40 Dose: 50 mg Documented by: Sodium Chloride (Nacl 0.9% 1000 Ml) 1,000 mls @ 50 mls/hr IV DIRECT [facility] Labetalol HCl (Labetalol) 10 mg IV Q6H PRN PRN Reason: Hypertension Lactulose (Cephulac) 20 gm PO QHS PRN PRN Reason: Constipation Magnesium Hydroxide (Milk Of Magnesia) 30 ml PO Q4H PRN PRN Reason: Constipation Metoclopramide HCl (Reglan) 5 mg IV Q6H PRN PRN Reason: Nausea And Vomiting Morphine Sulfate (Morphine) 2 mg IV Q4H PRN PRN Reason: Pain, Moderate (4-6) Last Admin: 09/17/20 18:53 Dose: 2 mg Documented by: Ondansetron HCl (Zofran) 4 mg IV Q8H PRN PRN Reason: Nausea And Vomiting Last Admin: 09/17/20 18:53 Dose: 4 mg Documented by: Sodium Chloride (Sodium Chloride Flush Syringe 10 Ml) 10 ml IV BID [facility] Last Admin: 09/21/20 10:54 Dose: 10 ml Documented by: Sodium Chloride (Sodium Chloride Flush Syringe 10 Ml) 10 ml IV PRN PRN PRN Reason: LINE FLUSH Tamsulosin HCl (Flomax) 0.4 mg PO QDAY [facility] Last Admin: 09/21/20 10:54 Dose: 0.4 mg Documented by: Tramadol HCl (Ultram) 50 mg PO Q6H PRN PRN Reason: Pain, Moderate (4-6) Last Admin: 09/17/20 15:05 Dose: 50 mg Documented by: Trazodone HCl (Desyrel) 50 mg PO QHS PRN PRN Reason: Insomnia Review of Systems All systems: negative (10 point ROS performed and negative except for that listed in HPI) Exam Vital Signs Temp Pulse Resp BP Pulse Ox 98.2 F 84 18 219/103 100 12/02/20 22:11 09/15/20 22:11 09/15/20 22:11 09/15/20 22:11 09/15/20 22:11 Narrative exam: Gen.: Awake, alert, oriented 3. No apparent distress ENT: Trachea midline. No lymphadenopathy. No scleral icterus or conjunctival pallor CV: S1, S2 present Respiratory: No audible wheezes Abdomen: Soft, nondistended, nontender. No rebound, rigidity, guarding Extremities: No clubbing, cyanosis, edema Results - Labs 09/21/20 05:25 09/21/20 05:25 Abnormal lab results 09/21/20 09/21/20 Range/Units 05:25 05:25 RBC 3.06 L (3.65-5.03) M/mm3 Hgb 8.4 L (11.8-15.2) gm/dl Hct 24.2 L (35.5-45.6) % MCV 79 L (84-94) fl MCHC 35 H (32-34) % RDW 16.3 H (13.2-15.2) % [place] % (Auto) 11.6 H (0.0-7.3) % [place] # (Auto) 1.1 H (0.0-0.8) K/mm3 Glucose 101 H (75-100) mg/dL Diabetes panel 09/21/20 Range/Units 05:25 Sodium 137 (137-145) mmol/L Potassium 3.6 (3.6-5.0) mmol/L Chloride 101.6 (98-107) mmol/L Carbon Dioxide 22 (22-30) mmol/L BUN 16 (9-20) mg/dL Creatinine 1.2 (0.8-1.3) mg/dL Glucose 101 H (75-100) mg/dL Calcium 8.9 (8.4-10.2) mg/dL Calcium panel 09/21/20 Range/Units 05:25 Calcium 8.9 (8.4-10.2) mg/dL Pituitary panel 09/21/20 Range/Units 05:25 Sodium 137 (137-145) mmol/L Potassium 3.6 (3.6-5.0) mmol/L Chloride 101.6 (98-107) mmol/L Carbon Dioxide 22 (22-30) mmol/L BUN 16 (9-20) mg/dL Creatinine 1.2 (0.8-1.3) mg/dL Glucose 101 H (75-100) mg/dL Calcium 8.9 (8.4-10.2) mg/dL Adrenal panel 09/21/20 Range/Units 05:25 Sodium 137 (137-145) mmol/L Potassium 3.6 (3.6-5.0) mmol/L Chloride 101.6 (98-107) mmol/L Carbon Dioxide 22 (22-30) mmol/L BUN 16 (9-20) mg/dL Creatinine 1.2 (0.8-1.3) mg/dL Glucose 101 H (75-100) mg/dL Calcium 8.9 (8.4-10.2) mg/dL - Imaging CT scan - abdomen: report reviewed, image reviewed CT scan - pelvis: report reviewed, image reviewed Assessment and Plan 74 yo M with rectal mass Plan: 1. Soft diet 2. path pending 3. No bleeding, perforation, obstruction - recommend outpatient follow up with oncology, GI, and colorectal surgery for further w/u and treatment. 4. Information for oncology and CRS provided in patient discharge paperwork 5. ok to dc from general surgery standpoint Thank you, please call with questions. Evaluation and treatment of this patient was during the time of the national and state emergency arising from COVID19 coronavirus pandemic. Treatment and procedures performed meet the current and available best practice and guidelines for patient during the COVID pandemic.
--- NOTE | 2020-09-21 16:35 | Discharge Summary ---
Providers - Providers Date of Admission: 09/17/20 13:30 Date of discharge: 09/21/20 Attending physician: DOMO TROTTER MD 09/16/20 00:09 Consult to Physician [CONS] Routine Comment: Consulting Provider: JEROMY MEIER Physician Instructions: Reason For Exam: acute renal failure 09/16/20 15:04 Consult to Physician [CONS] Routine Comment: Consulting Provider: CHRIS ALVARADO Physician Instructions: Reason For Exam: Bladder outlet obstruction 09/17/20 11:24 Consult to Physician [CONS] Routine Comment: Consulting Provider: JOSE D UMANZOR Physician Instructions: Reason For Exam: Bladder outlet obstruction 09/17/20 11:25 Consult to Physician [CONS] Routine Comment: Consulting Provider: BJORN FLANNERY Physician Instructions: Reason For Exam: Rectal pathology causing bladder outlet obstructio 09/20/20 16:25 Consult to Physician [CONS] Routine Comment: Consulting Provider: HEIDE HERNANDEZ Physician Instructions: Reason For Exam: rectal mass Primary care physician: FIELD LIABILITY GENERALIST Hospitalization Reason for admission: LIANNA, bladder outlet obstruction, hypertensive urgency Condition: Fair Hospital course: This is a 74-year-old male seen at bedside in ED. He presents with bilateral leg pitting edema and reports difficulty with ambulation due to swelling of the leg, worsen on left leg than right leg. Per ed/medical record-The patient was initially seen here on 08/24/2020 with a complaint of some left foot pain and mild left lower extremity swelling after stepping on a nail that went through his rubber boot. The patient was given a tetanus vaccination, placed on antibiotics, and discharged home. The patient returned on 08/30/2020 with complaint of continued, if not worsening, pain and swelling in the left lower extremity. Patient was once again evaluated, treated, and discharged home. on assessment, patient denies chest pain, shortness of breath, skin rash and skin lesion. He also denies tobacco , alcohol and illicit drug use. Patient blood pressure is elevated, he said he is not on any blood pressure medicine and he did not know he has hypertension. Patient renal function reduced and he denies history of kidney disease. ED Work Up Shows: WBC 6.3, hemoglobin 10.0, C02 19, Cr 5.0 Chest x-ra shows- There is a 2.2 cm nodular density in the left mid lung which is poorly seen on the lateral view. There is also hazy airspace disease in the left midlung. A few tiny scattered calcified granulomata are seen throughout the lungs Hospital course 09/16. RN: Place Gardner. Urology was consulted. 09/17. Abdominal CT performed showed severely distended bladder with bilateral hydronephrosis secondary to bladder outlet obstruction, and possible rectal lesion due to irregularity seen on CAT scan. Urology will place a Gardner today. GI consulted for consideration of colonoscopy. Patient had an x-ray performed on admission that showed 2.2 cm nodular density in the left midlung and he is airspace disease in the left midlung as well. He will need follow-up with a stuntman for lung nodule work-up. 09/18. Renal function better after gardner placement. Cr 3.8. Urology following. Had bloody urine in gardner and DVT ppx has been dced. Consulted GI due to rectal wall thickening (patient has not had a colonoscopy in the past. 09/19. Urine in Gardner clearing up. Plan for colonoscopy tomorrow 09/20. Plan for colonoscopy today. Patient could not finish bowel prep. Urine clearing up. Plan to follow-up with urology at discharge. Maintain Gardner. Continue Flomax Problems --Acute renal failure Current Visit: Yes Status: Acute Qualifiers: Qualified Code(s): N17.9 - Acute kidney failure, unspecified Plan to address problem: LIANNA secondary to bladder outlet obstruction Creatinine--5>5.5>6.5>>3.8>2>1.4 Gardner draining . Urology on board. Nephrology on board Avoid nephrotoxic medications Follow-up with urology on discharge. Maintain Gardner. Continue Flomax ---Bladder outlet obstruction Current Visit: Yes Status: Acute Plan to address problem: Gardner placed with good effect Started on flomax Gardner draining bloody urine. Maintain Gardner Urology recommendation appreciated ---Hypertensive urgency Current Visit: Yes Status: Acute Plan to address problem: Patient not on home bp medicine Monitor blood pressure Continue amlodipine daily PRN labetolol q 6hrs Discussed medication compliance ---Swelling of both lower extremities Current Visit: Yes Status: Acute Plan to address problem: Elevate foot of the bed. ---Lung nodule Current Visit: Yes Status: Acute Plan to address problem: Follow-up with pulmonology in the office for monitoring --- Rectal thickening Current Visit: Yes Status: Acute Plan to address problem: Had colonoscopy yesterday and found 15 cm rectal mass, biopsy was taken and surgery was consulted ---DVT prophylaxis Current Visit: Yes Status: Acute Plan to address problem: [facility] 09/21/2020; colonoscopy was done and found 15 cm rectal mass, biopsy was taken and surgery was consulted. Patient was seen by urology and will be discharged with GARDNER CATHETER catheter in place. Patient was evaluated by general surgery and gave him information about colorectal surgeons area and discharged home. Patient will have follow-up with GI for biopsy result. Will follow with urology for his management of catheter. Patient's LIANNA resolved. Blood pressure medications given at the time of discharge. Patient advised to have follow-up with pulmonary. Disposition: DC-30 STILL A PATIENT Time spent for discharge: 35 minutes - Discharge Diagnoses (1) Acute renal failure Status: Acute Qualifiers: Qualified Code(s): N17.9 - Acute kidney failure, unspecified (2) Hydronephrosis due to obstruction of bladder Status: Acute (3) Hypertensive urgency Status: Acute (4) Swelling of both lower extremities Status: Acute Core Measure Documentation - Palliative Care Palliative Care/ Comfort Measures: Not Applicable - Core Measures Any of the following diagnoses?: none Exam - Physical Exam Narrative exam: Not in cardiopulmonary distress. The patient appeared well nourished and normally developed. Vital signs as documented. Head exam is unremarkable. No scleral icterus . Neck is without jugular venous distension, thyromegaly, or carotid bruits. Lungs are clear to auscultation. Cardiac exam reveals regular rate and Rhythm. Abdominal exam reveals normal bowel sounds, nontender, no organomegaly. Extremities are nonedematous and both femoral and pedal pulses are normal. CHIEF REVENUE OFFICER: Alert and oriented 3. No focal weakness. - Constitutional Vitals: Temp Pulse Resp BP Pulse Ox 98.5 F 95 H 18 116/58 98 09/21/20 12:17 09/21/20 13:40 09/21/20 12:17 09/21/20 13:40 09/21/20 12:17 Plan Activity: no restrictions Diet: low salt Additional Instructions: Dr hernandez gave him local colorectal sungeons information to have follow up with for the rectal mass. Follow up with: MALENA MANCUSO MD [Staff Physician] - 7 Days JOSE D UMANZOR MD [Staff Physician] - 7 Days HELIO OLSEN MD [Staff Physician] - 7 Days [facility]IMARY [facility], [Primary Care Provider] - 3-5 Days TOMMY BUNCH MD [Referring] - 7 Days Prescriptions: RX: amLODIPine 10 mg PO QDAY #30 tablet RX: hydrALAZINE [Apresoline TAB] 50 mg PO Q8HR #180 tab RX: carvediloL [Coreg] 6.25 mg PO BID #60 tablet RX: Tamsulosin [Flomax] 0.4 mg PO QDAY #30 capsule
== END 2020-09-21 18:00 | disposition home or self-care (01) | DRG 699 ==
LOC: ED 21:58 → 4A 09-16 01:46 → OBSVTOIN 09-17 13:30
PROVIDERS: ADMIT Internal Medicine; ATTEND Internal Medicine
PROC: 0DBP8ZX Excision of Rectum, Via Natural or Artificial Opening Endoscopic, Diagnostic (ICD-10-PCS; principal; 2020-09-20)
DX: N32.0 Bladder-neck obstruction (principal); N17.9 Acute kidney failure, unspecified; N13.30 Unspecified hydronephrosis; I16.0 Hypertensive urgency; M79.89 Other specified soft tissue disorders; R91.1 Solitary pulmonary nodule; R33.9 Retention of urine, unspecified; D63.1 Anemia in chronic kidney disease; K62.89 Other specified diseases of anus and rectum; I12.9 Hypertensive chronic kidney disease with stage 1 through stage 4 chronic kidney disease, or unspecified chronic kidney disease; N18.9 Chronic kidney disease, unspecified
CPT/HCPCS: 36415; 71046; 74176; 76770; 80048; 80053; 80061; 80076; 81001; 83036; 83690; 83735; 83880; 84100; 84484; 85014; 85018; 85025; 88305; 88341; 88342; 93005; 93306; 93970; 96374; 96375; G0378; J1644; J1940; J2270; J2405; J2704; J7030